=== PATIENT | male | born 1945 | race Caucasian/White ===

== ENCOUNTER → 2017-12-13 | Outpatient (REF) | payer MEDICARE, OTHER ==
[~2017-12-13] MED LIST: ATOR10TA24 PO; DOC100 PO; DOCU-416 PO; ESC10 PO; FLU60SYR30 IM ONLY; FOLI-68 PO; GABA-492 PO; HYDR-3083 PO; HYDR12.561 PO; HYDR50CA47 PO; HYDR50CA48 PO; HYZAAR PO; IBU800 PO; LEV500 PO; LORA-630 PO; LOSA-31 PO; LOSA-44 PO; MULT-859 PO; OMEP-218 PO; OXYC-865 PO; PARO-244 PO; PHENA200 PO; PNEI IJ; SILD20TA PO; TRAZ-156 PO; VILA40TA PO; [UNRECOGNIZED DRUG - CODE] PO
== END ==
LOC: ZZSENDIN 14:04
PROVIDERS: ATTEND Family Medicine
DX: Z01.812 Encounter for preprocedural laboratory examination (principal)
CPT/HCPCS: 81001

== ENCOUNTER 2018-01-07 00:36 | Observation (INO) | payer MEDICARE, OTHER ==
[2018-01-06 14:31] LABS: INR 0.99
[2018-01-07] VITALS (9 sets, daily range): BP systolic 113–164; BP diastolic 73–102
[~2018-01-07] VITALS: Ht 177.8 cm; Wt 90.7 kg
--- NOTE | 2018-01-07 03:58 | LEVENE H&P ---
DATE OF ADMISSION: January 07, 2017 IDENTIFICATION/CHIEF COMPLAINT The patient is a 71-year-old gentleman with a chief complaint of right knee pain. HISTORY OF PRESENT ILLNESS The patient has a longstanding history of knee arthrosis that has become progressively painful and debilitating and refractory to conservative care. Surgery is indicated to relieve symptoms after failure of nonoperative measures. PAST MEDICAL HISTORY Hypertension, otherwise excellent health, mild gastroesophageal reflux disease. PAST SURGICAL HISTORY Notable for two knee scopes as well as surgery to his left knee when he fell through a ceiling in 1979 and a cholecystectomy. ALLERGIES He has no true drug allergies but gets nauseated with codeine. CURRENT MEDICATIONS * Losartan * Hydrochlorothiazide 25 mg daily * Paroxetine 30 mg daily * Prilosec 40 mg p.o. daily * Ibuprofen as needed FAMILY HISTORY Noncontributory. SOCIAL HISTORY Negative for tobacco use. He drinks beer or wine on occasion. No history of abuse. REVIEW OF SYSTEMS Notable for some hearing loss. PHYSICAL EXAMINATION GENERAL: This is a well-developed, well-nourished male who appears stated age. HEENT: Normocephalic, atraumatic. NECK: Supple. LUNGS: Clear. HEART: Regular. ABDOMEN: Soft. ORTHOPEDIC EXAMINATION The right knee has crepitus, effusion is present, gross stability is good, extensor function is intact. DIAGNOSTIC DATA Radiographs demonstrate end-stage knee arthritis. ASSESSMENT Right knee end-stage degenerative joint disease, progressively painful and debilitating, refractory to conservative care. PLAN Per patient request, we are going to proceed with total knee arthroplasty. The nature of the procedure, the risks, benefits, the anticipated rehabilitative course were reviewed. Risks include, but are not limited to, , major medical or anesthetic complication, infection, neurovascular injury, blood transfusion, stiffness, scarring, fracture, tendon rupture, instability, implant loosening, migration or failure, persistent or recurrent pain or symptoms, need for additional surgery and other unforeseen. He understands and wishes to proceed. A signed permit is placed in the chart. No guarantees are given or implied. [facility]ITAL[facility]
[2018-01-07] MEDS ORDERED: ceFAZolin(*) 2GM/D5W 50ML 50 ML IVPB ONE (12:15)
[2018-01-07] MEDS ORDERED: LIDOCAINE/SOD BICARB 8.4% SYR ID ONE (12:15)
[2018-01-07] MEDS ORDERED: cloNIDine EPIDUR INJ 100MCG/ML 40 MCG, ROPIVACAINE 0.5% 20 ML VIAL 25 ML, EPINEPHrine H... INJ ONE (12:15)
[2018-01-07] MEDS ORDERED: NORMOSOL R SOLN(*) 1000 ML BAG 1,000 ML IV PRN ×2 (12:15→15:05)
[2018-01-07] MEDS ORDERED: TRANEXAMIC AC 1000 MG/10ML SDV 1,000 MG in DEXTROSE 5% 50 ML BAG 50 ML IV ONE (12:15)
[2018-01-07] MEDS ORDERED: MIDAZOLAM 2 MG/2 ML VIAL IVP ONE (12:15)
[2018-01-07] MEDS ORDERED: MIDAZOLAM 2 MG/2 ML VIAL ONE (12:27)
[2018-01-07] MEDS ORDERED: fentaNYL CITR 100 MCG/2 ML AMP ONE (12:27)
[2018-01-07] MEDS ORDERED: MORPHINE PF 5 MG/10 ML AMP ONE (12:28)
[2018-01-07] MEDS ORDERED: DEXAMETHASONE SOD PHOS 10MG/ML ONE (12:50)
[2018-01-07] MEDS ORDERED: PROPOFOL EMUL(*) 10MG/ML 20 ML 20 ML ONE (12:50)
[2018-01-07] MEDS ORDERED: LIDOCAINE MPF 1% 5 ML VIAL ONE (12:50)
[2018-01-07] MEDS ORDERED: ONDANSETRON 4 MG/2 ML VIAL ONE (12:50)
[2018-01-07] MEDS ORDERED: PHENYLEPHRINE/NS/PF 0.4MG/10ML ONE (12:54)
[2018-01-07] MEDS ORDERED: NS(*) 0.9% 100 ML BAG 100 ML ONE (13:00)
[2018-01-07] MEDS ORDERED: PHENYLEPHRINE 10 MG/1 ML VIAL ONE (13:01)
[2018-01-07] MEDS ORDERED: FLUSH 10 ML SYR IVP PRN (15:05)
[2018-01-07] MEDS ORDERED: PROMETHAZINE 25 MG/ML 1 ML AMP IVP PRN (15:05)
[2018-01-07] MEDS ORDERED: BISACODYL 10 MG SUPP PR PRN (15:05)
[2018-01-07] MEDS ORDERED: DIAZEPAM 5 MG TAB PO PRN (15:05)
[2018-01-07] MEDS ORDERED: ACETAMINOPHEN 325 MG TAB PO PRN (15:05)
[2018-01-07] MEDS ORDERED: MAGNESIUM HYDROXIDE* 30ML UDCP PO PRN (15:05)
[2018-01-07] MEDS ORDERED: BENZOCAINE/MENTHOL 1 EACH LOZG PO PRN (15:05)
[2018-01-07] MEDS ORDERED: diphenhydrAMINE 50 MG/ML VIAL IVP PRN (15:05)
[2018-01-07] MEDS ORDERED: ZOLPIDEM TARTRATE 5 MG TAB PO PRN (15:05)
[2018-01-07] MEDS ORDERED: METOCLOPRAMIDE 10 MG/2 ML SDV IVP PRN (15:10)
[2018-01-07] MEDS ORDERED: NALBUPHINE HCL 10 MG/ML AMP IVP PRN (15:10)
[2018-01-07] MEDS ORDERED: NALOXONE HCL 0.4 MG/ML VIAL IVP PRN (15:10)
[2018-01-07] MEDS ORDERED: ONDANSETRON 4 MG/2 ML VIAL IVP PRN (15:10)
[2018-01-07] MEDS ORDERED: diphenhydrAMINE 25 MG CAP PO PRN (15:10)
--- NOTE | 2018-01-07 16:59 | Hospitalist Progress Note ---
Subjective Progress Notes Subjective No cp/sob. EBL 100cc. 2300cc of crystalloid, TXA, phenylephrine, and dexamethasone. Physical Exam Vital Signs Date Time Temp Pulse Resp B/P (MAP) Pulse Ox O2 Delivery O2 Flow Rate FiO2 01/07/18 15:45 91 14 92 01/07/18 11:02 98.5 164/102 (122) Room Air Intake and Output 01/08/18 07:00 Intake Total 1690 ml Output Total 400 ml Balance 1290 ml Intake Oral 240 ml IV Total 1450 ml Output Urine Total 300 ml Estimated Blood Loss 100 ml General Appearance: Alert, Awake, No Acute Distress Cardiovascular: Regular Rate and Rhythm Respiratory: Clear to Auscultation Extremities: No Edema Assessment and Plan Problems: (1) Status post knee replacement Status: Acute Assessment & Plan: No CV/pulmonary issues. The patient has no history of DVT/ PE. The patient will be on ASA 325mg a day for 30 days after surgery for blood clot prevention. (2) HTN (hypertension) Status: Chronic Assessment & Plan: Continue Losartan and HCTZ with parameters. BMP daily. Creatinine pre-op was 1.1. (3) Depression Status: Chronic Assessment & Plan: Continue chronic paroxetine. (4) GERD (gastroesophageal reflux disease) Status: Chronic Assessment & Plan: He take omeprazole chronically, but will be on Protonix in the hospital. Problem Qualifiers (1) Status post knee replacement: Laterality: right Qualified Codes: Z96.651 - Presence of right artificial knee joint CARLOTA MARTIN MD Jan 07, 2018 16:59
[2018-01-07] MEDS ORDERED: ceFAZolin(*) 1 GM VIAL 1 GM in NS(*) 0.9% 100 ML ADDVANT BAG 100 ML IVPB SCH (17:00)
--- NOTE | 2018-01-07 17:16 | RADIOLOGY IMAGING REPORT ---
FACILITY: [facility] PATIENT NAME: Edwin Ren : 1945 MR: [id number] V: [id number] EXAM DATE: ORDERING PHYSICIAN: MADINA PRADO TECHNOLOGIST: Location: [facility] - [place] Patient: Edwin Ren : 1945 Visit/Account:[id number] Date of Sevice: 01/07/2018 KNEE LIMITED RIGHT HISTORY: Status post right knee total arthroplasty. ADDITIONAL HISTORY: None. COMPARISON: None. FINDINGS: 2 views were obtained of the right knee. Patient is undergone placement of a right knee prosthesis wi th anatomic alignment of the components. There are no radiographic findings to suggest an acute compl ication. Visualized osseous structures are unremarkable. Small amount of air and fluid is present in the knee joint as would be expected. Skin cyndie are present. IMPRESSION: Patient status post placement of a right knee prosthesis with anatomic alignment of the components. T here is no radiographic evidence of an acute complication. Report Dictated By: Arti Hooker MD at 01/07/2018 5:10 PM Report E-Signed By: Arti Hooker MD at 01/07/2018 5:12 PM WSN:[id number]
[2018-01-07] MEDS: CELECOXIB 200 MG CAP PO SCH (18:09)
[2018-01-07] MEDS: ceFAZolin 1 GM VIAL IVP SCH (20:29)
--- NOTE | 2018-01-07 21:38 | OPERATIVE REPORT 1 ---
EVENT DATE: January 07, 2018 SURGEON: Robin Armando MD ANESTHESIOLOGIST: Sagar Wilson MD ANESTHESIA: Subarachnoid block anesthesia. PREOPERATIVE DIAGNOSIS Trouble placing urethral Reeves. POSTOPERATIVE DIAGNOSIS Trouble placing urethral Reeves. PROCEDURE PERFORMED Placement of urethra Reeves. DESCRIPTION OF PROCEDURE Under subarachnoid block anesthesia, the patient was prepped and draped in the supine position. Lubricant K-Y Jelly was placed per urethra. The 14 coude-tip catheter passed satisfactorily up the urethra into the bladder. Solution 12 mL was placed in the balloon. There was good efflux of clear urine after placement of the Reeves and putting it to gravity drainage on no tension. The patient tolerated the procedure satisfactorily and was turned over to Dr. Appiah and his crew for their planned orthopedic procedure. ML
[2018-01-07] MEDS: diphenhydrAMINE 25 MG CAP PO PRN (23:00)
[2018-01-08] VITALS (8 sets, daily range): BP systolic 119–141; BP diastolic 76–98; Ht 177.8 cm; Wt 90.7 kg
[2018-01-08] MEDS: ceFAZolin 1 GM VIAL IVP SCH ×2 (04:01→12:12)
--- NOTE | 2018-01-08 04:03 | LEVENE TKA ---
EVENT DATE: January 07, 2018 SURGEON: Adria Appiah MD ANESTHESIOLOGIST: Sagar Wilson MD ANESTHESIA: General plus spinal. DISASTER DIRECTOR: Raymond Kahn PA-C PREOPERATIVE DIAGNOSIS Right knee degenerative joint disease. POSTOPERATIVE DIAGNOSIS Right knee degenerative joint disease. PROCEDURE PERFORMED Right total knee arthroplasty. ESTIMATED BLOOD LOSS Minimal. DRAINS None. SPECIMENS None. COMPLICATIONS No apparent. TOURNIQUET TIME 54 minutes. IMPLANTS USED Gaye Triathlon knee system, a 5 right PS femur, 5 standard tibial baseplate, a 36 mm universal symmetric all polyethylene patella button and an 11 mm PS tibial tray liner. INDICATIONS The patient is 72-year-old gentleman with end-stage arthritis with progressive pain and disability refractory to conservative care. Surgery is indicated to relieve symptoms after failure of nonoperative measures. DESCRIPTION OF PROCEDURE The patient was taken to the operating room and placed supine on the operating table. General anesthesia was induced after spinal block is placed by the anesthesiologist. Antibiotics and TXA are administered IV. The right lower extremity is prepped and draped in the usual sterile fashion for knee arthroplasty. The limb is exsanguinated with an Esmarch bandage. The tourniquet is inflated to 250 mmHg. A midline longitudinal incision is made, carried down through the skin and subcu to the extensor mechanism. A full- thickness flap is developed medially far enough to allow medial parapatellar arthrotomy to be performed. The patella is everted. Knee is brought into a flexed position. The fat pad, anterior horns of the menisci and the cruciate ligaments are debrided. Subperiosteal medial release is initiated in titrated fashion to start to balance the knee. Step drill is used to enter the distal femur. A 10-inch long alignment guide is used to engage the isthmus. Cut is set for 5 degrees of valgus relative to the anatomic axis. A 10 mm resection block is applied, pinned, and distal femoral cut is made with an oscillating saw. AP sizing guide is applied to this, positioned for 3 degrees of external rotation relative to the posterior condyle. A size 5 is selected for optimal sizing without risk of notching. The four-in-one cutting block is applied. Anterior, posterior, posterior chamfer and anterior chamfer cuts are made respectively. A PS block is applied, centered mediolateral. Bone is removed for the box. Trial femur had nice [id number]-zdas fit. Attention is turned to tibial preparation. The extramedullary alignment guide is applied, positioned for varus, valgus, posterior slope and rotation. This is set to resect 9 mm from the relatively intact lateral tibial plateau. It is dropped down another millimeter or two to ensure an adequate cut. Block is pinned, extramedullary alignment check is made. Cut is made with an oscillating saw. Gaps are balanced and symmetric after osteophyte removal with no additional releases required. Size [address] provides optimum bony coverage without soft tissue overhang. This is inserted along with a trial liner and the trial femur. Knee is brought to extension. Patella is taken from a starting thickness of 22 mm to a residual of 14 with a patellar clamp and an oscillating saw. The 36 provides optimal bony coverage without soft tissue overhang. Lug holes are drilled. Patella tracks nicely with the no-touch technique. Final tibial preparation consists of ensuring appropriate rotational and translational position of the component. The box is reamed. The fine is punched. Surfaces are copiously lavaged. A mix of polymethylmethacrylate is made, and the components are cemented in a single stage. When cement is fully polymerized, tourniquet is deflated. Hemostasis is ensured. The 11 PS tibial tray liner is ideal to fill up the gap, allowing the knee to drop to full extension without hyperextension, providing ideal soft tissue balance. The base plate is dried and lavaged, and the liner is locked into the base plate. The joint is reduced. The large ossicle on the undersurface of his patellar tendon consistent with old Neris-Schlatter is removed to minimize prominence during kneeling, and then the arthroplasty is closed in flexion with #2-Ethibond , subcu with 3-0 Vicryl, skin with surgical cyndie. Xeroform was applied followed by a dry, sterile dressing and a compression wrap. The patient was awakened from the anesthesia and taken to the recovery room in stable condition , having tolerated the procedure well. Plan is for standard TK rehab protocol. [facility]
[2018-01-08] MEDS: diphenhydrAMINE 25 MG CAP PO PRN ×3 (04:45→21:45)
[2018-01-08] MEDS: APAP/HYDROCODONE 325/7.5 TAB PO PRN ×4 (05:25→21:45)
[2018-01-08] MEDS: CELECOXIB 200 MG CAP PO SCH ×2 (08:10→16:35)
--- NOTE | 2018-01-08 08:21 | Hospitalist Progress Note ---
Subjective Progress Notes Subjective No cp/sob. No concerns from patient or staff. Physical Exam Vital Signs Date Time Temp Pulse Resp B/P (MAP) Pulse Ox O2 Delivery O2 Flow Rate FiO2 01/08/18 07:27 92 Nasal Cannula 2.0 01/08/18 06:51 98.1 79 17 126/81 (96) General Appearance: Alert, Awake, No Acute Distress Result Diagram: 01/08/18 0545 Assessment and Plan Problems: (1) Status post knee replacement Status: Acute Assessment & Plan: No CV/pulmonary issues. The patient has no history of DVT/ PE. The patient will be on ASA 325mg a day for 30 days after surgery for blood clot prevention. (2) HTN (hypertension) Status: Chronic Assessment & Plan: Continue Losartan and HCTZ with parameters. BMP daily. Creatinine pre-op was 1.1. (3) Depression Status: Chronic Assessment & Plan: Continue chronic paroxetine. (4) GERD (gastroesophageal reflux disease) Status: Chronic Assessment & Plan: He take omeprazole chronically, but will be on Protonix in the hospital. Exam Sepsis Risk: No Definite Risk Problem Qualifiers (1) Status post knee replacement: Laterality: right Qualified Codes: Z96.651 - Presence of right artificial knee joint CARLOTA MARTIN MD Jan 08, 2018 08:21
[2018-01-08] MEDS: PANTOPRAZOLE SOD 40 MG TABEC PO SCH (09:16)
[2018-01-08] MEDS: HYDROCHLOROTHIAZIDE 25 MG TAB PO SCH (09:16)
[2018-01-08] MEDS: ASPIRIN 325 MG TAB PO SCH (09:16)
[2018-01-08] MEDS: LOSARTAN POTASSIUM 50 MG TAB PO SCH (09:17)
[2018-01-09 02:13] VITALS: BP 118/70
[2018-01-09 02:49] VITALS: BP 111/75
[2018-01-09] MEDS: APAP/HYDROCODONE 325/7.5 TAB PO PRN ×2 (02:56→07:50)
[2018-01-09 06:50] VITALS: BP 122/70
[2018-01-09] MEDS ORDERED: HYDR-4308 PO (07:09)
[2018-01-09] MEDS: CELECOXIB 200 MG CAP PO SCH (07:49)
[2018-01-09] MEDS: HYDROCHLOROTHIAZIDE 25 MG TAB PO SCH (09:00)
[2018-01-09 09:05] VITALS: BP 138/72
--- NOTE | 2018-01-09 09:06 | Hospitalist Progress Note ---
Subjective Progress Notes Subjective He reports doing well. He is planning on DC today. Physical Exam Vital Signs Date Time Temp Pulse Resp B/P (MAP) Pulse Ox O2 Delivery O2 Flow Rate FiO2 01/09/18 08:01 92 Room Air 01/09/18 06:50 98.2 72 12 122/70 (87) 1.0 Intake and Output 01/10/18 07:00 Intake Total 600 ml Output Total 550 ml Balance 50 ml Intake Oral 600 ml Output Urine Total 550 ml # Voids 1 # Bowel Movements 2 General Appearance: Alert, Awake Cardiovascular: Regular Rate and Rhythm Respiratory: Clear to Auscultation Result Diagram: 01/09/18 0536 Assessment and Plan Problems: (1) Status post knee replacement Status: Acute Assessment & Plan: Stable post-op. The patient has no history of DVT/PE. The patient will be on ASA 325mg a day for 30 days after surgery for blood clot prevention. (2) HTN (hypertension) Status: Chronic Assessment & Plan: Continue Losartan and HCTZ. (3) Depression Status: Chronic Assessment & Plan: Continue chronic paroxetine. (4) GERD (gastroesophageal reflux disease) Status: Chronic Assessment & Plan: He take omeprazole chronically, but was on Protonix in the hospital. Exam Sepsis Risk: No Definite Risk Problem Qualifiers (1) Status post knee replacement: Laterality: right Qualified Codes: Z96.651 - Presence of right artificial knee joint GWEN PIRES MD Jan 09, 2018 09:06
[2018-01-09] MEDS: PANTOPRAZOLE SOD 40 MG TABEC PO SCH (09:11)
[2018-01-09] MEDS: ASPIRIN 325 MG TAB PO SCH (09:11)
[2018-01-09] MEDS: LOSARTAN POTASSIUM 50 MG TAB PO SCH (09:12)
[2018-01-09] MEDS ORDERED: TAMSULOSIN HCL 0.4 MG CAP PO ONE (09:15)
[2018-01-09 11:38] VITALS: BP 113/71
[2018-01-09] MEDS ORDERED: ONDANSETRON 4 MG ODT TABDP SL PRN (12:15)
[2018-01-09] MEDS ORDERED: ONDA4TAB PO (12:15)
== END 2018-01-09 07:03 | disposition home or self-care (01) ==
LOC: OR 00:36 → UNDOADMOB 15:50 → MED 15:50
PROVIDERS: ADMIT Orthopaedic Surgery; ATTEND Orthopaedic Surgery
DX: M17.11 Unilateral primary osteoarthritis, right knee (principal); I10 Essential (primary) hypertension; K21.9 Gastro-esophageal reflux disease without esophagitis; F32.9 Major depressive disorder, single episode, unspecified
CPT/HCPCS: 27447; 36415; 73560; 85610; 86850; 86900; 86901; 96372; 97116; 97161; 97530; A9270; C1713; C1776; G0378; J0171; J0690; J0735; J1100; J1885; J2001; J2250; J2270; J2300; J2370; J2405; J2704; J2795; J3010; J7050; J7060; Q0162; Q0163; 82310; 82374; 82435; 82565; 82947; 84132; 84295; 84520; S0119

== ENCOUNTER 2018-01-10 04:23 | Emergency (ER) | payer MEDICARE, OTHER ==
[2018-01-08 10:13] VITALS: Ht 182.9 cm; Wt 89.8 kg
[~2018-01-10] VITALS: Ht 182.9 cm; Wt 89.8 kg
--- NOTE | 2018-01-10 04:33 | ER Report ---
History and Physical Time Seen By MD: 04:33 HPI/ROS CHIEF COMPLAINT: rapid heart rate, sweats/chills HISTORY OF PRESENT ILLNESS: This is a 72 year old male. He was discharged yesterday from the hospital after total knee replacement of the right knee. He had the surgery on 01/07 (Saturday) and was discharged yesterday 01/09 (). Throughout the day after discharge, he started to have rapid heart rate and chills which worsened tonight. EMS was called and he was found to be a little hypoxic with room air saturations of 88%. He has moderate post-operative pain. Tightness in the right calf, and some swelling in the right leg compared to the left. He has had some sinus pressure and drainage. He denies feeling short of breath with this. He does have some chest tightness. Denies dysuria, but records do show he had difficulty with the catheter and Dr. Armando placed a coude tip catheter in the OR prior to his surgery. He has not been coughing. He has no abdominal pain, nausea or vomiting with this. EMS also notes frequent PVCs on their monitoring. REVIEW OF SYSTEMS: Constitutional: As above. Eyes: No vision changes. ENT: As above. Cardiovascular: As above. Respiratory: As above. Gastrointestinal: Normal bowel movements. Genitourinary: No dysuria. No frequency Musculoskeletal: No other musculoskeletal pain. Skin: No rashes. Neurological: No dizziness or headache. Allergies: Coded Allergies: codeine (Verified Adverse Reaction, Severe, NAUSEA/VOMITING, 01/03/15) Home Meds Active Scripts Ondansetron (ZOFRAN ODT) 4 Mg Tab.rapdis, 4 MG PO Q8H Y for nausea, #5 TAB.ALIN Prov:CARLOTA MARTIN MD 01/09/18 Sildenafil Citrate (SILDENAFIL) 20 Mg Tablet, 20 MG PO TID for 10 Days, #30 3 Refills Prov:GABBY NÚÑEZ MD 11/11/17 Losartan/Hydrochlorothiazide (HYZAAR 100-25 TABLET) 1 Each Tablet, 1 EACH PO QDAY, #60 TAB Prov:GABBY NÚÑEZ MD 10/23/17 Reported Medications Hydrocodone Bit/Acetaminophen (NORCO 7.5-325 TABLET) 1 Each Tablet, 1-2 EACH PO Q4-6H, #80 01/09/18 Paroxetine Hcl (PAXIL) 30 Mg Tablet, 30 MG PO QDAY 12/26/13 Omeprazole Magnesium (Prilosec Otc) 20 Mg Tablet.dr, 20 MG PO QDAY 02/15/10 Past Medical/Surgical History Hypertension, history of TIA, gastroesophageal reflux disease, osteoarthritis, depression. Surgical history includes hiatal hernia repair, inguinal hernia repair, cholecystectomy, right knee total knee replacement as noted, orthoscopic surgery on knees, right shoulder, clavicle, tonsillectomy as a child. Reviewed Nurses Notes: Yes Hx Smoking: No Smoking Status: Never Smoker Exposure to Second Hand Smoke?: No Hx Substance Use Disorder: No Hx Alcohol Use: Yes Constitutional Vital Sign - Last 24 Hours 01/10/18 01/10/18 01/10/18 01/10/18 04:30 04:31 04:40 05:00 Temp 98.7 Pulse 109 102 102 95 Resp 14 17 17 16 B/P (MAP) 125/72 (89) 118/77 118/77 (91) 128/78 (95) Pulse Ox 91 94 98 97 O2 Delivery Nasal Cannula Nasal Cannula Nasal Cannula Nasal Cannula O2 Flow Rate 2 2 2 01/10/18 01/10/18 01/10/18 01/10/18 05:20 05:50 06:00 06:30 Pulse 95 101 101 99 Resp 17 15 19 17 B/P (MAP) 134/76 (95) 133/79 (97) Pulse Ox 97 97 97 93 O2 Delivery Nasal Cannula Nasal Cannula Nasal Cannula Nasal Cannula O2 Flow Rate 2 2 2 2 01/10/18 06:38 Pulse 95 Resp 18 Pulse Ox 96 O2 Delivery Nasal Cannula O2 Flow Rate 2 Intake and Output 01/10/18 01/10/18 01/11/18 15:00 23:00 07:00 Intake Total 1000 ml Balance 1000 ml Physical Exam General Appearance: The patient is alert. No acute distress. Eyes: Pupils are equal, round. No pallor, injection or icterus. ENT: Mucous membranes are moist. Normal oral mucosa. Posterior oropharynx is normal. Neck: Supple and non tender. Respiratory: Lungs are clear to auscultation. Cardiovascular: Tachycardia, but with a regular rhythm. No murmurs, gallops or rubs. Normal capillary refill. Normal pulses in both feet. Has some edema in right leg compared to the left. Gastrointestinal: Abdomen is soft and non tender. Nondistended. Normal active bowel sounds. Neurological: Alert and oriented x3. Normal sensation in the legs. No weakness. Skin: Warm and diaphoretic. Dressing on the leg is clean, dry and intact. Ultrasound was ordered, evaluation of the surgical wound was performed after the ultrasound. Musculoskeletal: The right lower extremity has some tight feeling in medial thigh and the calf. Some tenderness over the knee, but not excessive and expected post-operatively. DIFFERENTIAL DIAGNOSIS: After history and physical exam, differential diagnosis was considered for a patient who is 3 days post-operative from right total knee replacement with tachycardia, some mild swelling in right leg, mild hypoxia, sweats and chills. Consider post-operative infection such as urinary tract infection, pneumonia, surgical infection, DVT or PE, or viral syndrome. Medical Decision Making Data Points Result Diagram: 01/10/18 0427 01/10/18 0427 Laboratory Hematology Test 01/10/18 04:27 01/10/18 05:08 01/10/18 05:41 Red Blood Count 4.45 M/uL (4.00-5.60) Mean Corpuscular Volume 90.7 fL (80.0-96.0) Mean Corpuscular Hemoglobin 31.5 pg (26.0-33.0) Mean Corpuscular Hemoglobin Concent 34.7 g/dL (32.0-36.0) Red Cell Distribution Width 14.3 % (11.5-14.5) Mean Platelet Volume 7.9 fL (7.2-11.1) Neutrophils (%) (Auto) 75.4 % (39.4-72.5) Lymphocytes (%) (Auto) 13.0 % (17.6-49.6) Monocytes (%) (Auto) 10.7 % (4.1-12.4) Eosinophils (%) (Auto) 0.5 % (0.4-6.7) Basophils (%) (Auto) 0.4 % (0.3-1.4) Nucleated RBC Relative Count (auto) 0.1 /100WBC Neutrophils # (Auto) 7.6 K/uL (2.0-7.4) Lymphocytes # (Auto) 1.3 K/uL (1.3-3.6) Monocytes # (Auto) 1.1 K/uL (0.3-1.0) Eosinophils # (Auto) 0.1 K/uL (0.0-0.5) Basophils # (Auto) 0.0 K/uL (0.0-0.1) Nucleated RBC Absolute Count (auto) 0.01 K/uL Erythrocyte Sedimentation Rate 34 mm/HOUR (0-20) Sodium Level 135 mmol/L (137-145) Potassium Level 3.5 mmol/L (3.5-5.0) Chloride Level 97 mmol/L (98-107) Carbon Dioxide Level 27 mmol/L (22-30) Blood Urea Nitrogen 18 mg/dl (9-21) Creatinine 1.10 mg/dl (0.66-1.25) Glomerular Filtration Rate Calc > 60.0 Random Glucose 109 mg/dl (75-110) Lactate 1.2 mmol/L (0.7-2.1) Calcium Level 8.6 mg/dl (8.4-10.2) Total Bilirubin 1.2 mg/dl (0.2-1.3) Aspartate Amino Transf (AST/SGOT) 23 U/L (0-35) Alanine Aminotransferase (ALT/SGPT) 37 U/L (0-56) Alkaline Phosphatase 54 U/L (0-126) Troponin I 0.174 ng/ml C-Reactive Protein 15.9 mg/dl (<1.0) Total Protein 6.3 gm/dl (6.3-8.2) Albumin 3.3 g/dl (3.5-5.0) Influenza Virus Type A (PCR) Negative (NEGATIVE) Influenza Virus Type B (PCR) Negative (NEGATIVE) Urine Color Yellow Urine Clarity Clear Urine pH 6.0 pH (4.8-9.5) Urine Specific [place] 1.010 Urine Protein Negative mg/dL (NEGATIVE) Urine Glucose (UA) Negative mg/dL (NEGATIVE) Urine Ketones 20 mg/dL (NEGATIVE) Urine Blood Small (NEGATIVE) Urine Nitrite Negative (NEGATIVE) Urine Bilirubin Negative (NEGATIVE) Urine Urobilinogen Negative mg/dL (0.2-1.9) Urine Leukocyte Esterase Negative (NEGATIVE) Urine RBC 1 /HPF (0-2/HPF) Urine WBC 4 /HPF (0-5/HPF) Urine Squamous Epithelial Cells None /LPF (</=FEW) Urine Bacteria Negative /HPF (NONE-FEW) Urine Mucus None /HPF (NONE-FEW) Chemistry Test 01/10/18 04:27 01/10/18 05:08 01/10/18 05:41 White Blood Count 10.1 k/uL (4.5-11.0) Red Blood Count 4.45 M/uL (4.00-5.60) Hemoglobin 14.0 g/dL (14.0-18.0) Hematocrit 40.4 % (42.0-52.0) Mean Corpuscular Volume 90.7 fL (80.0-96.0) Mean Corpuscular Hemoglobin 31.5 pg (26.0-33.0) Mean Corpuscular Hemoglobin Concent 34.7 g/dL (32.0-36.0) Red Cell Distribution Width 14.3 % (11.5-14.5) Platelet Count 188 K/uL (150-450) Mean Platelet Volume 7.9 fL (7.2-11.1) Neutrophils (%) (Auto) 75.4 % (39.4-72.5) Lymphocytes (%) (Auto) 13.0 % (17.6-49.6) Monocytes (%) (Auto) 10.7 % (4.1-12.4) Eosinophils (%) (Auto) 0.5 % (0.4-6.7) Basophils (%) (Auto) 0.4 % (0.3-1.4) Nucleated RBC Relative Count (auto) 0.1 /100WBC Neutrophils # (Auto) 7.6 K/uL (2.0-7.4) Lymphocytes # (Auto) 1.3 K/uL (1.3-3.6) Monocytes # (Auto) 1.1 K/uL (0.3-1.0) Eosinophils # (Auto) 0.1 K/uL (0.0-0.5) Basophils # (Auto) 0.0 K/uL (0.0-0.1) Nucleated RBC Absolute Count (auto) 0.01 K/uL Erythrocyte Sedimentation Rate 34 mm/HOUR (0-20) Glomerular Filtration Rate Calc > 60.0 Lactate 1.2 mmol/L (0.7-2.1) Calcium Level 8.6 mg/dl (8.4-10.2) Total Bilirubin 1.2 mg/dl (0.2-1.3) Aspartate Amino Transf (AST/SGOT) 23 U/L (0-35) Alanine Aminotransferase (ALT/SGPT) 37 U/L (0-56) Alkaline Phosphatase 54 U/L (0-126) Troponin I 0.174 ng/ml C-Reactive Protein 15.9 mg/dl (<1.0) Total Protein 6.3 gm/dl (6.3-8.2) Albumin 3.3 g/dl (3.5-5.0) Influenza Virus Type A (PCR) Negative (NEGATIVE) Influenza Virus Type B (PCR) Negative (NEGATIVE) Urine Color Yellow Urine Clarity Clear Urine pH 6.0 pH (4.8-9.5) Urine Specific [place] 1.010 Urine Protein Negative mg/dL (NEGATIVE) Urine Glucose (UA) Negative mg/dL (NEGATIVE) Urine Ketones 20 mg/dL (NEGATIVE) Urine Blood Small (NEGATIVE) Urine Nitrite Negative (NEGATIVE) Urine Bilirubin Negative (NEGATIVE) Urine Urobilinogen Negative mg/dL (0.2-1.9) Urine Leukocyte Esterase Negative (NEGATIVE) Urine RBC 1 /HPF (0-2/HPF) Urine WBC 4 /HPF (0-5/HPF) Urine Squamous Epithelial Cells None /LPF (</=FEW) Urine Bacteria Negative /HPF (NONE-FEW) Urine Mucus None /HPF (NONE-FEW) Urinalysis Test 01/10/18 05:41 Urine Color Yellow Urine Clarity Clear Urine pH 6.0 pH (4.8-9.5) Urine Specific [place] 1.010 Urine Protein Negative mg/dL (NEGATIVE) Urine Glucose (UA) Negative mg/dL (NEGATIVE) Urine Ketones 20 mg/dL (NEGATIVE) Urine Blood Small (NEGATIVE) Urine Nitrite Negative (NEGATIVE) Urine Bilirubin Negative (NEGATIVE) Urine Urobilinogen Negative mg/dL (0.2-1.9) Urine Leukocyte Esterase Negative (NEGATIVE) Urine RBC 1 /HPF (0-2/HPF) Urine WBC 4 /HPF (0-5/HPF) Urine Squamous Epithelial Cells None /LPF (</=FEW) Urine Bacteria Negative /HPF (NONE-FEW) Urine Mucus None /HPF (NONE-FEW) Microbiology Microbiology Date/Time Source Procedure Growth Status 01/10/18 05:00 Blood Blood Culture - Preliminary NO GROWTH SO FAR, SET LATE. REINCUBATED Resulted 01/10/18 04:58 Blood Blood Culture - Preliminary NO GROWTH SO FAR, SET LATE. REINCUBATED Resulted EKG/Imaging EKG Interpretation 12 lead EKG: Rhythm: normal sinus rhythm, rate 99 Slater: Normal axis. QRS: Poor R-wave progression in the septal and anterior leads, ST segments: no ST segment depression or elevation, nonspecific flattening of the T waves laterally Imaging CT angiogram of the chest: Indication: Tachycardia and hypoxia. Recent knee surgery. Technique: Helical CT was performed through the chest following IV contrast enhancement with 75 cc of Isovue 370. Multiplanar reconstructions and MIP images are reviewed. One of the following dose optimization techniques was utilized in the performance of this exam: Automated exposure control; adjustment of the mA and/ or kV according to the patient's size; or use of an iterative reconstruction technique. Specific details can be referenced in the facility's radiology CT exam operational policy. Comparison: None. Pulmonary arteries: There is uniform contrast enhancement. There are no signs of pulmonary emboli. Aorta and great vessels: There is uniform contrast enhancement. There are no signs of aneurysm or dissection. Heart and pericardial soft tissues: Atherosclerotic calcification is observed in the coronary arteries. The heart size is normal. No pericardial fluid is identified. Mediastinal soft tissues: A small hiatal hernia is present. A few unenlarged lymph nodes are present in the superior mediastinum. There is no evidence of mass or fluid. Lung casey: There is linear atelectasis at the right base. No parenchymal consolidation, volume loss, or mass is identified. Pleural spaces: Unremarkable. Skeletal structures: There is mild/moderate degenerative disc disease and spur formation in the lower thoracic spine. Upper abdomen: Unremarkable. IMPRESSION: No evidence of pulmonary emboli. No focal parenchymal or pleural abnormality. Report Dictated By: Yobani Mas MD at 01/10/2018 6:01 AM ED Course/Re-evaluation Clinical Indication for ER IV: IV Access ED Course Initial evaluation based on presenting symptoms. Concern for post-op infectious process. White count was negative. Normal H/H and platelets. Metabolic panel was normal with a slight decrease Sodium and a slight increased BUN/Cr ratio. Blood sugar was normal. Based on risk for PE and DVT, Venous ultrasound of the lower legs and CT angiogram of the chest were done. CTA negative for pulmonary embolism or consolidation. Bladder scanner showed only 20-30 residual. Venous ultrasound negative for DVT. Troponin critical elevation of 0.174. Discussed this with the patient and his . If cardiology as needed, they preferred to go [place] to [place] or [place]. I called and discussed the case with Dr. Hassan, cardiology, who accepted the patient for transfer. He requested that we give the patient aspirin 324 mg, because of the recent surgery no other blood thinners ordered at this time until they do their evaluation. Patient requesting medicine for pain, and morphine 4mg IV was ordered. We did call and let Dr. Orantes, orthopedic surgery, know regarding the patient' s situation and he will let Dr. Michelle know. Decision to Disposition Date: Jan 10, 2018 Decision to Disposition Time: 06:34 Transfer Facility Patient was transferred to [facility] via ambulance. The transfer was non-emergent, and was required because the capabilities of the receiving hospital. Consent for transfer was obtained from the patient. See EMTALA for transfer orders. Depart Departure Latest Vital Signs Vital Signs Date Time Temp Pulse Resp B/P (MAP) Pulse Ox O2 Delivery O2 Flow Rate FiO2 01/10/18 06:38 95 18 96 Nasal Cannula 2 01/10/18 06:30 133/79 (97) 01/10/18 04:31 98.7 Impression: Primary Impression: NSTEMI (non-ST elevated myocardial infarction) Additional Impression: Hypoxia Condition: Condition Unchanged Disposition: [facility]FER TO [facility] Problem Qualifiers FLORIDA RUIZ MD Jan 10, 2018 04:33
[2018-01-10] MEDS ORDERED: EMS NS 0.9%(*) 1000 ML BAG 1,000 ML IV ONE (04:40)
[2018-01-10 05:00] LABS: PLATELET COUNT, AUTOMATED 188 K/uL (150-450)
[2018-01-10] MEDS ORDERED: IOPAMIDOL 76% 75 ML INFUS BTL 75 ML ONE (05:24)
[2018-01-10] MEDS ORDERED: NS 0.9% 150 ML BAG 150 ML ONE (05:24)
--- NOTE | 2018-01-10 06:04 | EKG ---
[place] [facility] [place] NAME: ADELINA GOMES : [id number] MR: [id number] V: [id number] EXAM DATE: ORDERING PHYSICIAN: FLORIDA RUIZ TECHNOLOGIST: Test Reason : Blood Pressure : / mmHG Vent. Rate : 099 BPM Atrial Rate : 099 BPM P-R Int : 164 ms QRS Dur : 100 ms QT Int : 362 ms P-R-T Axes : 059 064 109 degrees QTc Int : 464 ms Normal sinus rhythm No ST-T abnormalities When compared with ECG of 14-JAN-2014 14:43, Non-specific ST change diffusely Confirmed by CARLOTA MARTIN ([id number]) on 01/10/2018 6:16:39 AM Referred By: Confirmed By:CARLOTA MARTIN
--- NOTE | 2018-01-10 06:13 | RADIOLOGY IMAGING REPORT ---
[place] [facility] [place] NAME[place] Edwin Ren : 1945 MR: [id number] V: [id number] EXAM DATE: ORDERING PHYSICIAN: FLORIDA RUIZ TECHNOLOGIST: Location: [facility] Patient: Edwin Ren : 1945 Visit/Account:[id number] Date of Sevice: 01/10/2018 CT angiogram of the chest: Indication: Tachycardia and hypoxia. Recent knee surgery. Technique: Helical CT was performed through the chest following IV contrast enhancement with 75 cc of Isovue 370. Multiplanar reconstructions and MIP images are reviewed. One of the following dose optimization techniques was utilized in the performance of this exam: Autom ated exposure control; adjustment of the mA and/or kV according to the patient's size; or use of an i terative reconstruction technique. Specific details can be referenced in the facility's radiology C T exam operational policy. Comparison: None. Pulmonary arteries: There is uniform contrast enhancement. There are no signs of pulmonary emboli. Aorta and great vessels: There is uniform contrast enhancement. There are no signs of aneurysm or dis section. Heart and pericardial soft tissues: Atherosclerotic calcification is observed in the coronary arterie s. The heart size is normal. No pericardial fluid is identified. Mediastinal soft tissues: A small hiatal hernia is present. A few unenlarged lymph nodes are present in the superior mediastinum. There is no evidence of mass or fluid. Lung casey: There is linear atelectasis at the right base. No parenchymal consolidation, volume loss , or mass is identified. Pleural spaces: Unremarkable. Skeletal structures: There is mild/moderate degenerative disc disease and spur formation in the lower thoracic spine. Upper abdomen: Unremarkable. IMPRESSION: No evidence of pulmonary emboli. No focal parenchymal or pleural abnormality. Report Dictated By: Yobani Mas MD at 01/10/2018 6:01 AM Report E-Signed By: Yobani Mas MD at 01/10/2018 6:09 AM [id number]
[2018-01-10 06:30] VITALS: BP 133/79
[2018-01-10] MEDS ORDERED: ASPIRIN 81 MG CHEW PO ONE (07:20)
--- NOTE | 2018-01-10 07:23 | RADIOLOGY IMAGING REPORT ---
FACILITY: [facility] [place] PATIENT NAME: Edwin Ren : 1945 MR: [id number] V: [id number] EXAM DATE: ORDERING PHYSICIAN: FLOR[place] RUIZ TECHNOLOGIST: Location: [facility] Patient: Edwin Ren : 1945 Visit/Account:[id number] Date of Sevice: 01/10/2018 Duplex Doppler ultrasound of the bilateral lower extremities: Indication: Recent right knee surgery. Technique: Compression ultrasound with duplex Doppler imaging was performed. Comparison: None. Findings: There is normal compression of the bilateral common femoral, superficial femoral, popliteal , peroneal, posterior tibial, and proximal saphenous veins. There is no evidence of echogenic thrombu s. The Doppler patterns of resting flow and augmentation are within normal limits. There is no mass o r fluid collection. IMPRESSION: No evidence of deep vein thrombosis in either lower extremity. Report Dictated By: Yobani Mas MD at 01/10/2018 7:16 AM Report E-Signed By: Yobani Mas MD at 01/10/2018 7:19 AM WSN:[id number]
[2018-01-10] MEDS ORDERED: MORPHINE 4 MG/ML SDV IVP ONE (07:25)
== END 2018-01-10 09:15 | disposition short-term general hospital (02) ==
LOC: ER 04:24
DX: I21.4 Non-ST elevation (NSTEMI) myocardial infarction (principal); R09.02 Hypoxemia
CPT/HCPCS: 36415; 71275; 81001; 83605; 84484; 85025; 85651; 86140; 87040; 87088; 87502; 93005; 93970; 96361; 96374; 99285; A9270; J2270; Q9967; 82040; 82247; 82310; 82374; 82435; 82565; 82947; 84075; 84132; 84155; 84295; 84450; 84460; 84520

== ENCOUNTER → 2018-01-10 | Outpatient (CLI) | payer MEDICARE, OTHER ==
[2018-01-08 10:13] VITALS: BMI 28.7
[~2018-01-10] MED LIST changes: +HYDR-4308 PO; +ONDA4TAB PO
== END ==
LOC: AMB 08:54
PROVIDERS: ATTEND Nurse Practitioner
DX: I21.4 Non-ST elevation (NSTEMI) myocardial infarction (principal); R79.89 Other specified abnormal findings of blood chemistry; R09.02 Hypoxemia
CPT/HCPCS: A0425; A0426

== ENCOUNTER → 2018-01-10 | Outpatient (CLI) | payer MEDICARE, OTHER ==
[2018-01-08 10:13] VITALS: BMI 28.7
== END ==
LOC: AMB 04:01
PROVIDERS: ATTEND Nurse Practitioner
DX: R09.02 Hypoxemia (principal); R00.0 Tachycardia, unspecified; R09.81 Nasal congestion; Z96.651 Presence of right artificial knee joint
CPT/HCPCS: A0425; A0427

== ENCOUNTER 2018-01-30 18:18 | Emergency (ER) | payer MEDICARE, OTHER ==
[2018-01-08 10:13] VITALS: Ht 182.9 cm; Wt 89.8 kg
[~2018-01-30] VITALS: Ht 182.9 cm; Wt 89.8 kg
--- NOTE | 2018-01-30 18:21 | ER Report ---
History and Physical Time Seen By MD: 18:21 HPI/ROS CHIEF COMPLAINT: Weakness HISTORY OF PRESENT ILLNESS: 72-year-old male presents to the ER complaining of weakness and dizziness. Patient is 3 weeks post total knee replacement. He states he's been at physical therapy riding the bike without any difficulty. Today he traveled over to [place] and began to feel odd. Returning home, he continued to feel on occasion and this evening. He states she's having trouble focusing. He denies headache, blurry vision or slurred speech. He denies numbness, tingling, weakness in any of his arms or legs. He denies leg swelling in his right leg where he had the whole knee replacement. Patient denies fever, chills, sore throat or rhinitis. Patient denies dysuria. Patient 's also complaining that he has not slept well. REVIEW OF SYSTEMS: Respiratory: No cough, no dyspnea. Cardiovascular: No chest pain, no palpitations. Gastrointestinal: No vomiting, no abdominal pain. Musculoskeletal: No back pain. Allergies: Coded Allergies: codeine (Verified Adverse Reaction, Severe, NAUSEA/VOMITING, 01/30/18) Home Meds Active Scripts Triazolam (TRIAZOLAM) 0.125 Mg Tablet, 0.125 MG PO QHS Y for sleep, #10 Prov:JOHNATHAN SOLIS DO 01/30/18 Sildenafil Citrate (SILDENAFIL) 20 Mg Tablet, 20 MG PO TID for 10 Days, #30 3 Refills Prov:GABBY NÚÑEZ MD 11/11/17 Losartan/Hydrochlorothiazide (HYZAAR 100-25 TABLET) 1 Each Tablet, 1 EACH PO QDAY, #60 TAB Prov:GABBY NÚÑEZ MD 10/23/17 Reported Medications Paroxetine Hcl (PAXIL) 30 Mg Tablet, 30 MG PO QDAY 12/26/13 Omeprazole Magnesium (Prilosec Otc) 20 Mg Tablet.dr, 20 MG PO QDAY 02/15/10 Discontinued Reported Medications Hydrocodone Bit/Acetaminophen (NORCO 7.5-325 TABLET) 1 Each Tablet, 1-2 EACH PO Q4-6H, #80 01/09/18 Discontinued Scripts Ondansetron (ZOFRAN ODT) 4 Mg Tab.rapdis, 4 MG PO Q8H Y for nausea, #5 TAB.ALIN Prov:CARLOTA MARTIN MD 01/09/18 Reviewed Nurses Notes: Yes Old Medical Records Reviewed: Yes Hx Smoking: No Smoking Status: Never Smoker Exposure to Second Hand Smoke?: No Hx Substance Use Disorder: No Hx Alcohol Use: Yes Constitutional Vital Sign - Last 24 Hours 01/30/18 01/30/18 01/30/18 01/30/18 18:26 18:28 18:33 18:48 Temp 98.2 Pulse 78 80 82 Resp 16 B/P (MAP) 147/98 (114) 147/98 Pulse Ox 96 97 96 O2 Delivery Room Air 01/30/18 01/30/18 01/30/18 01/30/18 18:53 19:08 19:23 19:38 Pulse 78 81 70 71 Resp 35 12 12 Pulse Ox 97 97 97 96 01/30/18 19:53 Pulse 70 Resp 17 Pulse Ox 97 Physical Exam Vital signs stable, afebrile, pulse ox normal General Appearance: The patient is alert, has no immediate need for airway protection and no current signs of toxicity. Alert and oriented 3 HEENT: Pupils equal and round no injection. TMs normal, oropharynx without redness or exudate, mucous. Membranes are moist Respiratory: Chest is non tender, lungs are clear to auscultation. No chest wall tenderness Cardiac: regular rate and rhythm, no murmur Gastrointestinal: Abdomen is soft and non tender, no masses, bowel sounds normal. Musculoskeletal: Neck: Neck is supple and non tender. Extremities have full range of motion and are non tender. Skin: No rashes or lesions. DIFFERENTIAL DIAGNOSIS: After history and physical exam differential diagnosis was considered for weakness including but not limited to electrolyte abnormality , depression, anxiety, CVA, spinal cord abnormality, and infectious causes. blood loss. Medical Decision Making Data Points Result Diagram: 01/30/18184901/30/181849 Laboratory Hematology Test 01/30/18 18:23 01/30/18 18:50 Urine Color Yellow Urine Clarity Clear Urine pH 5.0 pH (4.8-9.5) Urine Specific [place] 1.013 Urine Protein Negative mg/dL (NEGATIVE) Urine Glucose (UA) Negative mg/dL (NEGATIVE) Urine Ketones Negative mg/dL (NEGATIVE) Urine Blood Small (NEGATIVE) Urine Nitrite Negative (NEGATIVE) Urine Bilirubin Negative (NEGATIVE) Urine Urobilinogen Negative mg/dL (0.2-1.9) Urine Leukocyte Esterase Negative (NEGATIVE) Urine RBC 1 /HPF (0-2/HPF) Urine WBC <1 /HPF (0-5/HPF) Urine Squamous Epithelial Cells None /LPF (</=FEW) Urine Bacteria Negative /HPF (NONE-FEW) Urine Mucus None /HPF (NONE-FEW) Red Blood Count 4.66 M/uL (4.00-5.60) Mean Corpuscular Volume 90.0 fL (80.0-96.0) Mean Corpuscular Hemoglobin 31.0 pg (26.0-33.0) Mean Corpuscular Hemoglobin Concent 34.5 g/dL (32.0-36.0) Red Cell Distribution Width 14.1 % (11.5-14.5) Mean Platelet Volume 7.1 fL (7.2-11.1) Neutrophils (%) (Auto) 67.7 % (39.4-72.5) Lymphocytes (%) (Auto) 17.7 % (17.6-49.6) Monocytes (%) (Auto) 9.2 % (4.1-12.4) Eosinophils (%) (Auto) 4.7 % (0.4-6.7) Basophils (%) (Auto) 0.7 % (0.3-1.4) Nucleated RBC Relative Count (auto) 0.0 /100WBC Neutrophils # (Auto) 5.2 K/uL (2.0-7.4) Lymphocytes # (Auto) 1.4 K/uL (1.3-3.6) Monocytes # (Auto) 0.7 K/uL (0.3-1.0) Eosinophils # (Auto) 0.4 K/uL (0.0-0.5) Basophils # (Auto) 0.1 K/uL (0.0-0.1) Nucleated RBC Absolute Count (auto) 0.00 K/uL Sodium Level 136 mmol/L (137-145) Potassium Level 3.3 mmol/L (3.5-5.0) Chloride Level 99 mmol/L (98-107) Carbon Dioxide Level 26 mmol/L (22-30) Blood Urea Nitrogen 20 mg/dl (9-21) Creatinine 1.00 mg/dl (0.66-1.25) Glomerular Filtration Rate Calc > 60.0 Random Glucose 114 mg/dl (75-110) Calcium Level 9.2 mg/dl (8.4-10.2) Total Bilirubin 0.5 mg/dl (0.2-1.3) Aspartate Amino Transf (AST/SGOT) 17 U/L (0-35) Alanine Aminotransferase (ALT/SGPT) 37 U/L (0-56) Alkaline Phosphatase 60 U/L (0-126) Troponin I < 0.012 ng/ml Total Protein 6.8 gm/dl (6.3-8.2) Albumin 3.6 g/dl (3.5-5.0) Chemistry Test 01/30/18 18:23 01/30/18 18:50 Urine Color Yellow Urine Clarity Clear Urine pH 5.0 pH (4.8-9.5) Urine Specific [place] 1.013 Urine Protein Negative mg/dL (NEGATIVE) Urine Glucose (UA) Negative mg/dL (NEGATIVE) Urine Ketones Negative mg/dL (NEGATIVE) Urine Blood Small (NEGATIVE) Urine Nitrite Negative (NEGATIVE) Urine Bilirubin Negative (NEGATIVE) Urine Urobilinogen Negative mg/dL (0.2-1.9) Urine Leukocyte Esterase Negative (NEGATIVE) Urine RBC 1 /HPF (0-2/HPF) Urine WBC <1 /HPF (0-5/HPF) Urine Squamous Epithelial Cells None /LPF (</=FEW) Urine Bacteria Negative /HPF (NONE-FEW) Urine Mucus None /HPF (NONE-FEW) White Blood Count 7.7 k/uL (4.5-11.0) Red Blood Count 4.66 M/uL (4.00-5.60) Hemoglobin 14.5 g/dL (14.0-18.0) Hematocrit 41.9 % (42.0-52.0) Mean Corpuscular Volume 90.0 fL (80.0-96.0) Mean Corpuscular Hemoglobin 31.0 pg (26.0-33.0) Mean Corpuscular Hemoglobin Concent 34.5 g/dL (32.0-36.0) Red Cell Distribution Width 14.1 % (11.5-14.5) Platelet Count 295 K/uL (150-450) Mean Platelet Volume 7.1 fL (7.2-11.1) Neutrophils (%) (Auto) 67.7 % (39.4-72.5) Lymphocytes (%) (Auto) 17.7 % (17.6-49.6) Monocytes (%) (Auto) 9.2 % (4.1-12.4) Eosinophils (%) (Auto) 4.7 % (0.4-6.7) Basophils (%) (Auto) 0.7 % (0.3-1.4) Nucleated RBC Relative Count (auto) 0.0 /100WBC Neutrophils # (Auto) 5.2 K/uL (2.0-7.4) Lymphocytes # (Auto) 1.4 K/uL (1.3-3.6) Monocytes # (Auto) 0.7 K/uL (0.3-1.0) Eosinophils # (Auto) 0.4 K/uL (0.0-0.5) Basophils # (Auto) 0.1 K/uL (0.0-0.1) Nucleated RBC Absolute Count (auto) 0.00 K/uL Glomerular Filtration Rate Calc > 60.0 Calcium Level 9.2 mg/dl (8.4-10.2) Total Bilirubin 0.5 mg/dl (0.2-1.3) Aspartate Amino Transf (AST/SGOT) 17 U/L (0-35) Alanine Aminotransferase (ALT/SGPT) 37 U/L (0-56) Alkaline Phosphatase 60 U/L (0-126) Troponin I < 0.012 ng/ml Total Protein 6.8 gm/dl (6.3-8.2) Albumin 3.6 g/dl (3.5-5.0) Urinalysis Test 01/30/18 18:23 Urine Color Yellow Urine Clarity Clear Urine pH 5.0 pH (4.8-9.5) Urine Specific [place] 1.013 Urine Protein Negative mg/dL (NEGATIVE) Urine Glucose (UA) Negative mg/dL (NEGATIVE) Urine Ketones Negative mg/dL (NEGATIVE) Urine Blood Small (NEGATIVE) Urine Nitrite Negative (NEGATIVE) Urine Bilirubin Negative (NEGATIVE) Urine Urobilinogen Negative mg/dL (0.2-1.9) Urine Leukocyte Esterase Negative (NEGATIVE) Urine RBC 1 /HPF (0-2/HPF) Urine WBC <1 /HPF (0-5/HPF) Urine Squamous Epithelial Cells None /LPF (</=FEW) Urine Bacteria Negative /HPF (NONE-FEW) Urine Mucus None /HPF (NONE-FEW) EKG/Imaging EKG Interpretation 12 lead EK Rhythm: normal sinus rhythm [place]: normal QRS: normal ST segments: normal, nonspecific ST and T-wave changes, comparison to previous EKG 01/10/18, no significant change Imaging X-ray: Single view chest x-ray was obtained. I viewed the images myself on the PACS system. My interpretation of the images is: No infiltrate, no effusion, normal mediastinum. The radiologist interpretation had no clinically significant variation from this interpretation. Results: CT scan of the head was obtained. The results of the study are HEAD W/O CONTRAST EXAMINATION: CT head/brain without contrast HISTORY: Weakness unsteady TECHNIQUE: Contiguous axial images were obtained from the skull base to the vertex without intravenous contrast. One of the following dose optimization techniques was utilized in the performance of this exam: Automated exposure control; adjustment of the mA and/ or kV according to the patient's size; or use of an iterative reconstruction technique. Specific details can be referenced in the facility's radiology CT exam operational policy. COMPARISON STUDIES: None FINDINGS: Ventricles/sulci/fissures: Midline in position and normal in configuration. Masses/hemorrhage/midline shift: No hemorrhage. No parenchymal mass lesion. White matter: Mild age-related small vessel ischemic changes suspected. Carrillo-white differentiation: No cerebral edema. No evidence of any sulci effacement. Extra-axial spaces: No subdural or epidural fluid collections. No subarachnoid blood Dural venous sinuses/arterial structures: Negative Skull base/calvarium: Negative Visualized mastoid air cells/paranasal sinuses: Negative IMPRESSION: Negative CT scan of the head for acute intracranial pathology. The study was read by the radiologist. I viewed the images myself on the PACS system. ED Course/Re-evaluation Clinical Indication for ER IV: Hydration, IV Access ED Course Patient was minute to an examination room. H&P was done. The differential diagnoses was considered. On clinical examination. Patient has normal vital signs and a nonfocal neurologic examination. Diagnostic studies are undertaken. Laboratory studies are unremarkable. He is treated with IV fluid hydration. His potassium is noted be slightly low. CT scan ahead chest and EKG are all unremarkable. Patient feels better after IV fluid hydration. I suspect that he is suffering from some mild dehydration and some sleep deprivation. He is requesting a sleeping pill. Prescription for triazolam was provided. Patient advised to follow-up with his primary care if unimproved in 3 -5 days. Decision to Disposition Date: Jan 30, 2018 Decision to Disposition Time: 19:39 Depart Departure Latest Vital Signs Vital Signs Date Time Temp Pulse Resp B/P (MAP) Pulse Ox O2 Delivery O2 Flow Rate FiO2 01/30/18 19:53 70 17 97 01/30/18 18:28 98.2 147/98 Room Air Impression: Primary Impression: Weakness Additional Impression: Status post total knee replacement Condition: Improved Disposition: HOME OR SELF-CARE Referrals: REYMUNDO MYERS MD, FARRUKH MD New Scripts Triazolam (TRIAZOLAM) 0.125 Mg Tablet 0.125 MG PO QHS Y for sleep, #10 Prov: JOHNATHAN SOLIS DO 01/30/18 Patient Instructions: Fatigue (ED) Additional Instructions: Follow-up with your primary care doctor if unimproved in 2-5 days Problem Qualifiers Additional Impression: Status post total knee replacement Laterality: right Qualified Codes: Z96.651 - Presence of right artificial knee joint JOHNATHAN SOLIS DO Jan 30, 2018 18:21
[2018-01-30 18:28] VITALS: BP 147/98
[2018-01-30] MEDS ORDERED: NS(*) 0.9% 1000 ML BAG 1,000 ML IV ONE (18:37)
[2018-01-30 18:59] LABS: PLATELET COUNT, AUTOMATED 295 K/uL (150-450)
--- NOTE | 2018-01-30 19:32 | RADIOLOGY IMAGING REPORT ---
FACILITY: [facility] - [place] PATIENT NAME: Edwin Ren : 1945 MR: [id number] V: [id number] EXAM DATE: ORDERING PHYSICIAN: JOHNATHAN SOLIS TECHNOLOGIST: Location: [facility] [place] Patient: Edwin Ren : 1945 Visit/Account:[id number] Date of Sevice: 01/30/2018 HEAD W/O CONTRAST EXAMINATION: CT head/brain without contrast HISTORY: Weakness unsteady TECHNIQUE: Contiguous axial images were obtained from the skull base to the vertex without intravenou s contrast. One of the following dose optimization techniques was utilized in the performance of this exam: Autom ated exposure control; adjustment of the mA and/or kV according to the patient's size; or use of an i terative reconstruction technique. Specific details can be referenced in the facility's radiology C T exam operational policy. COMPARISON STUDIES: None FINDINGS: Ventricles/sulci/fissures: Midline in position and normal in configuration. Masses/hemorrhage/midline shift: No hemorrhage. No parenchymal mass lesion. White matter: Mild age-related small vessel ischemic changes suspected. Carrillo-white differentiation: No cerebral edema. No evidence of any sulci effacement. Extra-axial spaces: No subdural or epidural fluid collections. No subarachnoid blood Dural venous sinuses/arterial structures: Negative Skull base/calvarium: Negative Visualized mastoid air cells/paranasal sinuses: Negative IMPRESSION: Negative CT scan of the head for acute intracranial pathology. Report Dictated By: Lance Jean-Baptiste MD at 01/30/2018 7:26 PM Report E-Signed By: Lance Jean-Baptiste MD at 01/30/2018 7:27 PM WSN:[id number]
--- NOTE | 2018-01-30 19:34 | RADIOLOGY IMAGING REPORT ---
FACILITY: [facility] - [place] PATIENT NAME: Edwin Ren : 1945 MR: [id number] V: [id number] EXAM DATE: ORDERING PHYSICIAN: JOHNATHAN SOLIS TECHNOLOGIST: Location: [facility] [place] Patient: Edwin eRn : 1945 Visit/Account:[id number] Date of Sevice: 01/30/2018 CHEST SINGLE AP Additional pertinent History: Weakness unsteady COMPARISON STUDIES: 12/06/2017 FINDINGS: Support lines and catheters: Negative Lungs and Pleura: Lung casey well expanded with no infiltrates or consolidations. No parenchymal ma ss lesions are seen. There are no effusions Heart and vasculature: Negative. Meagan and Mediastinum: Negative. Bones and Chest wall: Clavicular plate seen in the right mid/distal clavicle Upper Abdomen: Negative. IMPRESSION: 1. Negative chest for acute cardiopulmonary disease. Report Dictated By: Lance Jean-Baptiste MD at 01/30/2018 7:28 PM Report E-Signed By: Lance Jean-Baptiste MD at 01/30/2018 7:30 PM WSN:[id number]
[2018-01-30] MEDS ORDERED: [UNRECOGNIZED DRUG - CODE] PO (20:06)
--- NOTE | 2018-01-30 22:50 | EKG ---
FACILITY: [facility] - [place] PATIENT NAME: ADELINA GOMES : [id number] MR: [id number] V: [id number] EXAM DATE: ORDERING PHYSICIAN: JOHNATHAN SOLIS TECHNOLOGIST: BOUCHRA Test Reason : WEAKNESS Blood Pressure : / mmHG Vent. Rate : 084 BPM Atrial Rate : 084 BPM P-R Int : 166 ms QRS Dur : 104 ms QT Int : 406 ms P-R-T Axes : 055 051 043 degrees QTc Int : 479 ms Normal sinus rhythm Normal ECG When compared with ECG of 10-JAN-2018 05:48, Criteria for Septal infarct are no longer present T wave inversion no longer evident in Lateral leads Confirmed by HILLARY STARR ([id number]) on 01/31/2018 6:48:58 AM Referred By: Confirmed By:HILLARY STARR
== END 2018-01-30 20:10 | disposition home or self-care (01) ==
LOC: ER 18:23
DX: E87.6 Hypokalemia (principal); E86.0 Dehydration; R53.1 Weakness; Z96.651 Presence of right artificial knee joint
CPT/HCPCS: 70450; 71045; 81001; 84484; 85025; 93005; 96360; 99284; J7030; 82040; 82247; 82310; 82374; 82435; 82565; 82947; 84075; 84132; 84155; 84295; 84450; 84460; 84520

== ENCOUNTER 2018-07-02 06:34 | Emergency (ER) | payer MEDICARE, OTHER ==
[2018-01-08 10:13] VITALS: BMI 28.7
[~2018-07-02 06:34] MED LIST changes: -TRAZ-156 PO; +TRAZ50TA34 PO; +[UNRECOGNIZED DRUG - CODE] PO
--- NOTE | 2018-07-02 06:51 | EKG ---
FACILITY: [facility] PATIENT NAME: ADELINA GOMES : [id number] MR: [id number] V: [id number] EXAM DATE: ORDERING PHYSICIAN: VERÓNICA RICO TECHNOLOGIST: GO Franklin Reason : NEURO Blood Pressure : / mmHG Vent. Rate : 074 BPM Atrial Rate : 074 BPM P-R Int : 162 ms QRS Dur : 108 ms QT Int : 428 ms P-R-T Axes : 020 046 020 degrees QTc Int : 475 ms Sinus rhythm with occasional premature ventricular complexes Otherwise normal ECG When compared with ECG of 30-JAN-2018 18:40, premature ventricular complexes are now present Confirmed by Durga Nunn ([id number]) on 07/02/2018 7:50:16 AM Referred By: Confirmed By:Durga Orozco
--- NOTE | 2018-07-02 06:53 | ER Report ---
History and Physical Time Seen By MD: 06:48 Hx. of Stated Complaint: Pt reports he woke up and his legs are feeling weak. Pt denies chest pain, SOB , or unilateral tingling or weakness. Pt states he has not changed his medications. Pt states he ate a lot of sugar yesterday. No NVD. (VERÓNICA HEBERT DO) HPI/ROS CHIEF COMPLAINT: Generalized weakness HISTORY OF PRESENT ILLNESS: Patient is a 72-year-old male here with complaints of generalized weakness starting this morning when waking up. Patient reportedly went to sleep feeling at his baseline however woke up this morning feeling weak all over without any focal deficits. Patient denies chest pain, shortness breath, nausea, vomiting, fevers, chills, headache, blurred vision, abdominal pains, arthralgias, myalgias, recent traumas. Patient is well- appearing at time of reevaluation, afebrile, hemodynamically stable and in no acute distress. He does have history of hypertension and takes an antihypertensive medication, Prilosec for GERD, and otherwise had a previous negative workup for cardiac etiology in the distant past. REVIEW OF SYSTEMS: Constitutional: No fevers or chills + generalized weakness Eyes: No discharge. ENT: No sore throat. Cardiovascular: No chest pain, no palpitations. Respiratory: No cough, no shortness of breath. Gastrointestinal: No abdominal pain, no vomiting. Genitourinary: No hematuria. Musculoskeletal: No back pain. Skin: No rashes. Neurological: No headache. (VERÓNICA HEBERT DO) Allergies: Coded Allergies: codeine (Verified Adverse Reaction, Severe, NAUSEA/VOMITING, 01/30/18) Home Meds Active Scripts Losartan/Hydrochlorothiazide (HYZAAR 100-25 TABLET) 1 Each Tablet, 1 EACH PO QDAY, #60 TAB Prov:GABBY NÚÑEZ MD 10/23/17 Reported Medications Paroxetine Hcl (PAXIL) 30 Mg Tablet, 30 MG PO QDAY 12/26/13 Omeprazole Magnesium (Prilosec Otc) 20 Mg Tablet.dr, 20 MG PO QDAY 02/15/10 Discontinued Scripts Triazolam (TRIAZOLAM) 0.125 Mg Tablet, 0.125 MG PO QHS Y for sleep, #10 Prov:JOHNATHAN SOLIS DO 01/30/18 Sildenafil Citrate (SILDENAFIL) 20 Mg Tablet, 20 MG PO TID for 10 Days, #30 3 Refills Prov:GABBY NÚÑEZ MD 11/11/17 Hx Smoking: No Smoking Status: Never Smoker Exposure to Second Hand Smoke?: No Hx Substance Use Disorder: No Hx Alcohol Use: Yes (VERÓNICA HEBERT DO) Constitutional Vital Sign - Last 24 Hours 07/02/18 07/02/18 07/02/18 07/02/18 06:38 06:39 06:49 07:00 Temp 98.0 Pulse 77 68 Resp 16 16 B/P (MAP) 164/93 (116) 164/93 143/87 (105) Pulse Ox 95 96 O2 Delivery Room Air 07/02/18 07/02/18 07/02/18 07:04 07:24 07:30 Pulse 74 70 Resp 16 14 B/P (MAP) 156/117 (130) Pulse Ox 98 (TOMY BROOKS MD) Physical Exam General Appearance: The patient is alert, has no immediate need for airway protection and no signs of toxicity. No acute distress Eyes: Pupils equal and round no pallor or injection. ENT, Mouth: Mucous membranes are moist. Respiratory: There are no retractions, lungs are clear to auscultation. Cardiovascular: Regular rate and rhythm. Gastrointestinal: Abdomen is soft and non tender, no masses, bowel sounds normal. Neurological: No focal neurologic deficits Skin: Warm and dry, no rashes. Musculoskeletal: Neck is supple non tender. Extremities are nontender, nonswollen and have full range of motion. DIFFERENTIAL DIAGNOSIS: After history and physical exam differential diagnosis was considered for electrolyte abnormalities, cardiac etiology, infectious etiology, dehydration (VERÓNICA HEBERT DO) Medical Decision Making Data Points Result Diagram: 07/02/18 0655 07/02/18 0655 Laboratory Hematology Test 07/02/18 06:55 07/02/18 07:45 Red Blood Count 4.97 M/uL (4.00-5.60) Mean Corpuscular Volume 90.8 fL (80.0-96.0) Mean Corpuscular Hemoglobin 31.8 pg (26.0-33.0) Mean Corpuscular Hemoglobin Concent 35.0 g/dL (32.0-36.0) Red Cell Distribution Width 14.8 % (11.5-14.5) Mean Platelet Volume 7.5 fL (7.2-11.1) Neutrophils (%) (Auto) 80.4 % (39.4-72.5) Lymphocytes (%) (Auto) 12.5 % (17.6-49.6) Monocytes (%) (Auto) 5.3 % (4.1-12.4) Eosinophils (%) (Auto) 1.4 % (0.4-6.7) Basophils (%) (Auto) 0.4 % (0.3-1.4) Nucleated RBC Relative Count (auto) 0.0 /100WBC Neutrophils # (Auto) 7.0 K/uL (2.0-7.4) Lymphocytes # (Auto) 1.1 K/uL (1.3-3.6) Monocytes # (Auto) 0.5 K/uL (0.3-1.0) Eosinophils # (Auto) 0.1 K/uL (0.0-0.5) Basophils # (Auto) 0.0 K/uL (0.0-0.1) Nucleated RBC Absolute Count (auto) 0.00 K/uL Sodium Level 135 mmol/L (137-145) Potassium Level 2.8 mmol/L (3.5-5.0) Chloride Level 96 mmol/L (98-107) Carbon Dioxide Level 27 mmol/L (22-30) Blood Urea Nitrogen 23 mg/dl (9-21) Creatinine 1.10 mg/dl (0.66-1.25) Glomerular Filtration Rate Calc > 60.0 Random Glucose 131 mg/dl (75-110) Calcium Level 8.9 mg/dl (8.4-10.2) Magnesium Level 1.7 mg/dl (1.7-2.2) Total Bilirubin 1.0 mg/dl (0.2-1.3) Aspartate Amino Transf (AST/SGOT) 21 U/L (0-35) Alanine Aminotransferase (ALT/SGPT) 30 U/L (0-56) Alkaline Phosphatase 50 U/L (0-126) Troponin I < 0.012 ng/ml Total Protein 6.8 g/dl (6.3-8.2) Albumin 4.0 g/dl (3.5-5.0) Urine Color Yellow Urine Clarity Clear Urine pH 6.0 pH (4.8-9.5) Urine Specific [place] 1.016 Urine Protein Negative mg/dL (NEGATIVE) Urine Glucose (UA) Negative mg/dL (NEGATIVE) Urine Ketones Negative mg/dL (NEGATIVE) Urine Blood Negative (NEGATIVE) Urine Nitrite Negative (NEGATIVE) Urine Bilirubin Negative (NEGATIVE) Urine Urobilinogen Negative mg/dL (0.2-1.9) Urine Leukocyte Esterase Negative (NEGATIVE) Urine RBC <1 /HPF (0-2/HPF) Urine WBC None /HPF (0-5/HPF) Urine Squamous Epithelial Cells None /LPF (</=FEW) Urine Bacteria Negative /HPF (NONE-FEW) Urine Mucus None /HPF (NONE-FEW) Chemistry Test 07/02/18 06:55 07/02/18 07:45 White Blood Count 8.8 k/uL (4.5-11.0) Red Blood Count 4.97 M/uL (4.00-5.60) Hemoglobin 15.8 g/dL (14.0-18.0) Hematocrit 45.1 % (42.0-52.0) Mean Corpuscular Volume 90.8 fL (80.0-96.0) Mean Corpuscular Hemoglobin 31.8 pg (26.0-33.0) Mean Corpuscular Hemoglobin Concent 35.0 g/dL (32.0-36.0) Red Cell Distribution Width 14.8 % (11.5-14.5) Platelet Count 229 K/uL (150-450) Mean Platelet Volume 7.5 fL (7.2-11.1) Neutrophils (%) (Auto) 80.4 % (39.4-72.5) Lymphocytes (%) (Auto) 12.5 % (17.6-49.6) Monocytes (%) (Auto) 5.3 % (4.1-12.4) Eosinophils (%) (Auto) 1.4 % (0.4-6.7) Basophils (%) (Auto) 0.4 % (0.3-1.4) Nucleated RBC Relative Count (auto) 0.0 /100WBC Neutrophils # (Auto) 7.0 K/uL (2.0-7.4) Lymphocytes # (Auto) 1.1 K/uL (1.3-3.6) Monocytes # (Auto) 0.5 K/uL (0.3-1.0) Eosinophils # (Auto) 0.1 K/uL (0.0-0.5) Basophils # (Auto) 0.0 K/uL (0.0-0.1) Nucleated RBC Absolute Count (auto) 0.00 K/uL Glomerular Filtration Rate Calc > 60.0 Calcium Level 8.9 mg/dl (8.4-10.2) Magnesium Level 1.7 mg/dl (1.7-2.2) Total Bilirubin 1.0 mg/dl (0.2-1.3) Aspartate Amino Transf (AST/SGOT) 21 U/L (0-35) Alanine Aminotransferase (ALT/SGPT) 30 U/L (0-56) Alkaline Phosphatase 50 U/L (0-126) Troponin I < 0.012 ng/ml Total Protein 6.8 g/dl (6.3-8.2) Albumin 4.0 g/dl (3.5-5.0) Urine Color Yellow Urine Clarity Clear Urine pH 6.0 pH (4.8-9.5) Urine Specific [place] 1.016 Urine Protein Negative mg/dL (NEGATIVE) Urine Glucose (UA) Negative mg/dL (NEGATIVE) Urine Ketones Negative mg/dL (NEGATIVE) Urine Blood Negative (NEGATIVE) Urine Nitrite Negative (NEGATIVE) Urine Bilirubin Negative (NEGATIVE) Urine Urobilinogen Negative mg/dL (0.2-1.9) Urine Leukocyte Esterase Negative (NEGATIVE) Urine RBC <1 /HPF (0-2/HPF) Urine WBC None /HPF (0-5/HPF) Urine Squamous Epithelial Cells None /LPF (</=FEW) Urine Bacteria Negative /HPF (NONE-FEW) Urine Mucus None /HPF (NONE-FEW) Urinalysis Test 07/02/18 07:45 Urine Color Yellow Urine Clarity Clear Urine pH 6.0 pH (4.8-9.5) Urine Specific [place] 1.016 Urine Protein Negative mg/dL (NEGATIVE) Urine Glucose (UA) Negative mg/dL (NEGATIVE) Urine Ketones Negative mg/dL (NEGATIVE) Urine Blood Negative (NEGATIVE) Urine Nitrite Negative (NEGATIVE) Urine Bilirubin Negative (NEGATIVE) Urine Urobilinogen Negative mg/dL (0.2-1.9) Urine Leukocyte Esterase Negative (NEGATIVE) Urine RBC <1 /HPF (0-2/HPF) Urine WBC None /HPF (0-5/HPF) Urine Squamous Epithelial Cells None /LPF (</=FEW) Urine Bacteria Negative /HPF (NONE-FEW) Urine Mucus None /HPF (NONE-FEW) (TOMY BROOKS MD) EKG/Imaging EKG Interpretation 12 lead EKG: Normal sinus rhythm with PVCs, rate 74, QTc 475, no ischemic changes Rhythm: normal sinus rhythm with PVCs Howard: normal QRS: normal ST segments: normal Monitor Interpretation: Normal Sinus Rhythm (VERÓNICA HEBERT DO) ED Course/Re-evaluation ED Course Patient is a 72-year-old male here with complaints of acute onset of weakness after waking up which is generalized without focal neurological deficits. Patient is afebrile, hemodynamically stable in no acute distress. Patient denies recent trauma or other significant comorbidities aside from hypertension , GERD. Patient was well-appearing at time of evaluation. Patient was signed out to Dr. Brooks after initial lab workup was ordered. 1 L normal saline bolus was administered for hydration optimization. EKG showed no ischemic changes. (VERÓNICA HEBERT DO) ED Course ED clinical course medical decision making patient endorsed me by Dr. Hebert generalized nonspecific weakness workup demonstrated hypokalemia with potassium less than 3 this is replaced both IV and by mouth repeat EKG pending initial EKG troponins cardiac markers chest x-ray all negative no focal deficits no sign of acute stroke event patient's hypokalemia be treated emergency department follow up with primary care Decision to Disposition Date: Jul 02, 2018 Decision to Disposition Time: 08:21 (TOMY BROOKS MD) Depart Departure Latest Vital Signs Vital Signs Date Time Temp Pulse Resp B/P (MAP) Pulse Ox O2 Delivery O2 Flow Rate FiO2 07/02/18 07:30 156/117 (130) 07/02/18 07:24 70 14 07/02/18 07:04 98 07/02/18 06:39 98.0 Room Air (TOMY BROOKS MD) Impression: Primary Impression: Weakness Additional Impression: Hypokalemia Condition: Improved Disposition: HOME OR SELF-CARE Referrals: JUAN DAVID TAFOYA DNP, [facility] 5 Days Patient Instructions: Hypokalemia (DC) Problem Qualifiers VERÓNICA HEBERT DO Jul 02, 2018 06:53 TOMY BROOKS MD Jul 02, 2018 07:56
[2018-07-02] MEDS ORDERED: NS(*) 0.9% 1000 ML BAG 1,000 ML IV ONE (07:00)
[2018-07-02 07:08] LABS: PLATELET COUNT, AUTOMATED 229 K/uL (150-450)
[2018-07-02] MEDS ORDERED: POTASSIUM CHL 20 MEQ TABCR PO ONE (07:25)
[2018-07-02] MEDS ORDERED: KCL/NS* 20 MEQ/1000 ML PREMIX 1,000 ML IV SCH (07:25)
[2018-07-02] MEDS ORDERED: KCL (*) 20 MEQ/100 ML PREMIX 100 ML IV ONE ×2 (07:25→07:40)
--- NOTE | 2018-07-02 07:40 | RADIOLOGY IMAGING REPORT ---
FACILITY: [facility] PATIENT NAME: dEwin Ren : 1945 MR: [id number] V: [id number] EXAM DATE: ORDERING PHYSICIAN: VERÓNICA RICO TECHNOLOGIST: Location: [facility] Patient: Edwin Ren : 1945 Visit/Account:[id number] Date of Sevice: 07/02/2018 TWO VIEW CHEST 07/02/2018 6:43 AM. INDICATION: weakness COMPARISON: 01/30/2018. FINDINGS: Lungs are well-expanded. The lungs are clear. No pneumothorax or pleural effusion. Pulmo nary vasculature is unremarkable. Heart size is normal. Unchanged right clavicle fixation hardware. Cholecystectomy clips. IMPRESSION: No acute cardiopulmonary abnormality. Report Dictated By: Hiram Portillo MD at 07/02/2018 7:34 AM Report E-Signed By: Hiram Portillo MD at 07/02/2018 7:35 AM [id number]
[2018-07-02 10:18] VITALS: BP 149/98
--- NOTE | 2018-07-02 12:25 | EKG ---
FACILITY: [facility] PATIENT NAME: ADELINA GOMES : [id number] MR: [id number] V: [id number] EXAM DATE: ORDERING PHYSICIAN: TOMY BROOKS TECHNOLOGIST: GO Franklin Reason : REPEAT Blood Pressure : / mmHG Vent. Rate : 075 BPM Atrial Rate : 075 BPM P-R Int : 176 ms QRS Dur : 104 ms QT Int : 424 ms P-R-T Axes : 046 033 020 degrees QTc Int : 473 ms Sinus rhythm with occasional premature ventricular complexes Otherwise normal ECG No previous ECGs available Confirmed by CARLOTA MARTIN ([id number]) on 07/02/2018 2:23:21 PM Referred By: TODD Confirmed By:CARLOTA MARTIN
== END 2018-07-02 10:23 | disposition home or self-care (01) ==
LOC: ER 07:17
DX: R53.1 Weakness (principal); E87.6 Hypokalemia; I10 Essential (primary) hypertension; K21.9 Gastro-esophageal reflux disease without esophagitis; Z79.899 Other long term (current) drug therapy
CPT/HCPCS: 71046; 81001; 83735; 84484; 85025; 93005; 96361; 96365; 96366; 99284; A9270; J3480; J7030; 82040; 82247; 82310; 82374; 82435; 82565; 82947; 84075; 84132; 84155; 84295; 84450; 84460; 84520

== ENCOUNTER 2018-10-07 02:18 | Day surgery (SDC) | payer MEDICARE, OTHER ==
[2018-01-08 10:13] VITALS: Ht 182.9 cm; Wt 85.3 kg
[~2018-10-07] VITALS: Ht 182.9 cm; Wt 85.3 kg
[~2018-10-07 02:18] MED LIST changes: -HYDR-4308 PO; +HYDR-654 PO
[2018-10-07 10:29] VITALS: BP 166/111
[2018-10-07] MEDS ORDERED: NORMOSOL R SOLN(*) 1000 ML BAG 1,000 ML IV PRN (12:00)
[2018-10-07] MEDS ORDERED: LIDOCAINE/SOD BICARB 8.4% SYR ID ONE (12:00)
[2018-10-07 12:25] VITALS: BP 94/66
[2018-10-07 12:30] VITALS: BP 100/70
[2018-10-07 12:50] VITALS: BP 119/105
[2018-10-07 12:52] VITALS: BP 131/96
[2018-10-07] MEDS ORDERED: PROPOFOL EMUL(*) 10MG/ML 20 ML 60 ML ONE (12:55)
[2018-10-07] MEDS ORDERED: INFLUENZA VIRUS VAC 0.5ML SYR IM ONLY ONE (13:00)
== END 2018-10-07 13:13 | disposition home or self-care (01) ==
LOC: OR 02:18
PROVIDERS: ATTEND Family Medicine
DX: K62.0 Anal polyp (principal); K92.1 Melena; I10 Essential (primary) hypertension; F41.9 Anxiety disorder, unspecified
CPT/HCPCS: 00811; 45385; 88305; J2704

== ENCOUNTER 2019-01-27 09:55 | Emergency (ER) | payer MEDICARE, OTHER ==
[2018-01-08 10:13] VITALS: Wt 87.1 kg
--- NOTE | 2019-01-27 10:07 | ER Report ---
History and Physical Time Seen By MD: 10:07 Hx. of Stated Complaint: LEFT SIDE ABD PAIN HPI/ROS CHIEF COMPLAINT: Left abdominal pain HISTORY OF PRESENT ILLNESS: This is a 73-year-old male. He started having lower left abdominal pain this morning when he woke up. Last night he was feeling fine. Pain does not radiate. Worsens with movement and walking. Denies any diarrhea or constipation. No melena or blood in stool. Normal urination without dysuria or change in color or blood. Denies any flank pain. No history of kidney stones. Had a colonoscopy while back and said it was reported as normal. Denies any fevers or chills with this. Denies chest pain or shortness of breath. Allergies: Coded Allergies: codeine (Verified Adverse Reaction, Severe, NAUSEA/VOMITING, 01/27/19) Home Meds Active Scripts Promethazine Hcl (PROMETHAZINE HCL) 25 Mg Tablet, 25 MG PO Q8H PRN for NAUSEA/VOMITING, #20 TAB 0 Refills Prov:FLORIDA RUIZ MD 01/27/19 Hydrocodone Bit/Acetaminophen (HYDROCODON-ACETAMINOPHEN 5-325) 1 Each Tablet, 1 EACH PO Q4H PRN for PAIN, #12 TAB 0 Refills Prov:FLOR[place] RUIZ MD 01/27/19 Metronidazole (METRONIDAZOLE) 500 Mg Tablet, 500 MG PO TID, #30 TAB 0 Refills Prov:FLORIDA RUIZ MD 01/27/19 Levofloxacin 500 Mg Tab (LEVAQUIN 500 MG TAB) 500 Mg Tablet, 500 MG PO QDAY, #10 TAB 0 Refills Prov:FLORIDA RUIZ MD 01/27/19 Losartan/Hydrochlorothiazide (HYZAAR 100-25 TABLET) 1 Each Tablet, 1 EACH PO QDAY, #60 TAB Prov:GABBY NÚÑEZ MD 10/23/17 Reported Medications Amoxicillin 500 Mg Tab (AMOXICILLIN 500 MG TAB) 500 Mg Tablet, 1 TAB PO Q8H, TAB 01/27/19 Omeprazole Magnesium (PRILOSEC OTC) Unknown Strength Tablet., PO 2XW, TAB 09/09/18 Paroxetine Hcl (PAXIL) 30 Mg Tablet, 30 MG PO QDAY 12/26/13 Reviewed Nurses Notes: Yes Hx Smoking: No Smoking Status: Never Smoker Exposure to Second Hand Smoke?: Yes (12 YEARS) Hx Substance Use Disorder: No Hx Alcohol Use: Yes Constitutional Vital Sign - Last 24 Hours 01/27/19 01/27/19 01/27/19 01/27/19 09:59 10:00 10:30 11:00 Temp 97.9 Pulse 74 73 65 Resp 16 B/P (MAP) 168/101 168/101 (123) 146/94 (111) 149/95 (113) Pulse Ox 93 94 93 O2 Delivery Room Air 01/27/19 01/27/19 01/27/19 01/27/19 11:30 12:00 12:30 13:00 Pulse 67 68 69 67 B/P (MAP) 152/92 (112) 147/88 (107) 144/91 (108) 142/90 (107) Pulse Ox 95 92 91 91 01/27/19 13:30 Pulse 68 B/P (MAP) 138/84 (102) Pulse Ox 89 Physical Exam General Appearance: The patient is alert. Mild distress because of pain. Eyes: Pupils are equal, round. No pallor, injection or icterus. ENT: Mucous membranes are moist. Normal oral mucosa. Posterior oropharynx is normal. Neck: Supple and non tender. Respiratory: Lungs are clear to auscultation. Cardiovascular: Regular rate and rhythm. No murmurs, gallops or rubs. Normal capillary refill. Gastrointestinal: Abdomen is soft, tender in left lower quadrant. Nondistended. No rebound or guarding. Normal active bowel sounds. No costovertebral angle tenderness with percussion. Neurological: Alert and oriented x3. No focal neurologic deficits Skin: Warm and dry. Musculoskeletal: Extremities are nontender. DIFFERENTIAL DIAGNOSIS: After history and physical exam, differential diagnosis was considered for left lower abdominal pain including but not limited to diverticulitis and kidney stones Medical Decision Making Data Points Result Diagram: 01/27/19 1022 01/27/19 1022 Laboratory Hematology Test 01/27/19 10:00 01/27/19 10:22 Urine Color Shreya Urine Clarity Clear Urine pH 5.0 pH (4.8-9.5) Urine Specific Agency 1.026 Urine Protein Negative mg/dL (NEGATIVE) Urine Glucose (UA) Negative mg/dL (NEGATIVE) Urine Ketones Negative mg/dL (NEGATIVE) Urine Blood Negative (NEGATIVE) Urine Nitrite Negative (NEGATIVE) Urine Bilirubin Negative (NEGATIVE) Urine Urobilinogen Negative mg/dL (0.2-1.9) Urine Leukocyte Esterase Negative (NEGATIVE) Urine RBC None /HPF (0-2/HPF) Urine WBC 1 /HPF (0-5/HPF) Urine Squamous Epithelial Cells Few /LPF (</=FEW) Urine Bacteria Negative /HPF (NONE-FEW) Urine Mucus Few /HPF (NONE-FEW) Red Blood Count 5.26 M/uL (4.00-5.60) Mean Corpuscular Volume 92.3 fL (80.0-96.0) Mean Corpuscular Hemoglobin 32.3 pg (26.0-33.0) Mean Corpuscular Hemoglobin Concent 35.0 g/dL (32.0-36.0) Red Cell Distribution Width 13.8 % (11.5-14.5) Mean Platelet Volume 7.6 fL (7.2-11.1) Neutrophils (%) (Auto) 71.0 % (39.4-72.5) Lymphocytes (%) (Auto) 16.1 % (17.6-49.6) Monocytes (%) (Auto) 8.9 % (4.1-12.4) Eosinophils (%) (Auto) 3.4 % (0.4-6.7) Basophils (%) (Auto) 0.6 % (0.3-1.4) Nucleated RBC Relative Count (auto) 0.0 /100WBC Neutrophils # (Auto) 3.5 K/uL (2.0-7.4) Lymphocytes # (Auto) 0.8 K/uL (1.3-3.6) Monocytes # (Auto) 0.4 K/uL (0.3-1.0) Eosinophils # (Auto) 0.2 K/uL (0.0-0.5) Basophils # (Auto) 0.0 K/uL (0.0-0.1) Nucleated RBC Absolute Count (auto) 0.00 K/uL Sodium Level 138 mmol/L (137-145) Potassium Level 3.2 mmol/L (3.5-5.0) Chloride Level 100 mmol/L (98-107) Carbon Dioxide Level 29 mmol/L (22-30) Blood Urea Nitrogen 18 mg/dl (9-21) Creatinine 1.00 mg/dl (0.66-1.25) Glomerular Filtration Rate Calc > 60.0 Random Glucose 138 mg/dl (75-110) Calcium Level 9.3 mg/dl (8.4-10.2) Total Bilirubin 1.2 mg/dl (0.2-1.3) Aspartate Amino Transf (AST/SGOT) 27 U/L (0-35) Alanine Aminotransferase (ALT/SGPT) 37 U/L (0-56) Alkaline Phosphatase 59 U/L (0-126) Total Protein 7.1 g/dl (6.3-8.2) Albumin 4.2 g/dl (3.5-5.0) Amylase Level 61 U/L (0-110) Lipase 72 U/L (23-300) Chemistry Test 01/27/19 10:00 01/27/19 10:22 Urine Color Shreya Urine Clarity Clear Urine pH 5.0 pH (4.8-9.5) Urine Specific Agency 1.026 Urine Protein Negative mg/dL (NEGATIVE) Urine Glucose (UA) Negative mg/dL (NEGATIVE) Urine Ketones Negative mg/dL (NEGATIVE) Urine Blood Negative (NEGATIVE) Urine Nitrite Negative (NEGATIVE) Urine Bilirubin Negative (NEGATIVE) Urine Urobilinogen Negative mg/dL (0.2-1.9) Urine Leukocyte Esterase Negative (NEGATIVE) Urine RBC None /HPF (0-2/HPF) Urine WBC 1 /HPF (0-5/HPF) Urine Squamous Epithelial Cells Few /LPF (</=FEW) Urine Bacteria Negative /HPF (NONE-FEW) Urine Mucus Few /HPF (NONE-FEW) White Blood Count 5.0 k/uL (4.5-11.0) Red Blood Count 5.26 M/uL (4.00-5.60) Hemoglobin 17.0 g/dL (14.0-18.0) Hematocrit 48.6 % (42.0-52.0) Mean Corpuscular Volume 92.3 fL (80.0-96.0) Mean Corpuscular Hemoglobin 32.3 pg (26.0-33.0) Mean Corpuscular Hemoglobin Concent 35.0 g/dL (32.0-36.0) Red Cell Distribution Width 13.8 % (11.5-14.5) Platelet Count 223 K/uL (150-450) Mean Platelet Volume 7.6 fL (7.2-11.1) Neutrophils (%) (Auto) 71.0 % (39.4-72.5) Lymphocytes (%) (Auto) 16.1 % (17.6-49.6) Monocytes (%) (Auto) 8.9 % (4.1-12.4) Eosinophils (%) (Auto) 3.4 % (0.4-6.7) Basophils (%) (Auto) 0.6 % (0.3-1.4) Nucleated RBC Relative Count (auto) 0.0 /100WBC Neutrophils # (Auto) 3.5 K/uL (2.0-7.4) Lymphocytes # (Auto) 0.8 K/uL (1.3-3.6) Monocytes # (Auto) 0.4 K/uL (0.3-1.0) Eosinophils # (Auto) 0.2 K/uL (0.0-0.5) Basophils # (Auto) 0.0 K/uL (0.0-0.1) Nucleated RBC Absolute Count (auto) 0.00 K/uL Glomerular Filtration Rate Calc > 60.0 Calcium Level 9.3 mg/dl (8.4-10.2) Total Bilirubin 1.2 mg/dl (0.2-1.3) Aspartate Amino Transf (AST/SGOT) 27 U/L (0-35) Alanine Aminotransferase (ALT/SGPT) 37 U/L (0-56) Alkaline Phosphatase 59 U/L (0-126) Total Protein 7.1 g/dl (6.3-8.2) Albumin 4.2 g/dl (3.5-5.0) Amylase Level 61 U/L (0-110) Lipase 72 U/L (23-300) Urinalysis Test 01/27/19 10:00 Urine Color Shreya Urine Clarity Clear Urine pH 5.0 pH (4.8-9.5) Urine Specific Agency 1.026 Urine Protein Negative mg/dL (NEGATIVE) Urine Glucose (UA) Negative mg/dL (NEGATIVE) Urine Ketones Negative mg/dL (NEGATIVE) Urine Blood Negative (NEGATIVE) Urine Nitrite Negative (NEGATIVE) Urine Bilirubin Negative (NEGATIVE) Urine Urobilinogen Negative mg/dL (0.2-1.9) Urine Leukocyte Esterase Negative (NEGATIVE) Urine RBC None /HPF (0-2/HPF) Urine WBC 1 /HPF (0-5/HPF) Urine Squamous Epithelial Cells Few /LPF (</=FEW) Urine Bacteria Negative /HPF (NONE-FEW) Urine Mucus Few /HPF (NONE-FEW) EKG/Imaging Imaging CT ABDOMEN PELVIS W/ CON HISTORY: left abdominal pain since this morning TECHNIQUE: Following administration of IV contrast contiguous axial images acquired through the abdomen/pelvis. Coronal and sagittal reformatting also performed.Dose Lowering Technique One of the following dose optimization techniques was utilized in the performance of this exam: Automated exposure control; adjustment of the mA and/or kV according to the patient's size; or use of an iterative reconstruction technique. Specific details can be referenced in the facility's radiology CT exam operational policy. CONTRAST: 90 mL Isovue-300 COMPARISON: CTA chest January 10, [address] of abdomen and pelvis March 03, 2014 FINDINGS: Visualized lung bases: Negative. Hepatobiliary: There postsurgical changes from a cholecystectomy. Period 2 cm a lobular cyst inferior medial right lobe of the liver remains unchanged. There are several additional tiny hypodensities in the right lobe which may represent additional cysts although are too small to characterize Spleen: Negative. Adrenals: There is mild thickening the adrenal glands Pancreas: Negative. Kidneys ureters or bladder: There are numerous bilateral renal cysts Genitalia: Prostate gland is enlarged impinging upon the floor the bladder. There is a TURP defect GI: There is extensive diverticulosis throughout the left-sided the colon. There is very subtle infiltrative changes seen in the pericolonic fat in the distal descending colon which may represent mild acute diverticulitis Vessels/spaces/nodes: There mild atherosclerotic calcifications throughout the abdominal aorta and branch vessels. 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 There is a moderate left inguinal hernia containing fat. There is an additional hernia containing fat just lateral and superior to the right inguinal canal. There is a levoconvex scoliosis lumbar spine with extensive spondylotic changes. Additional findings: None pertinent. IMPRESSION: There is extensive diverticulosis throughout the left-sided the colon. There is very subtle infiltrative changes seen in the pericolic fat in the distal descending colon which may represent mild acute diverticulitis There is a large right hernia containing fat and a moderate left inguinal hernia. There is an additional small hernia containing fat that is just lateral and superior to the right inguinal canal Additional chronic findings as described Report Dictated By: Elizabeth Abarca MD at 01/27/2019 11:47 AM ED Course/Re-evaluation Clinical Indication for ER IV: Hydration, IV Access ED Course After initial evaluation, gave the patient some IV morphine and Zofran. CT scan ordered and labs obtained. Urinalysis negative, no sign of kidney stone. CT scan obtained showing diverticulitis. There are some inguinal hernias. Reevaluation with recheck shows that there is bulging there but no pain associated with this so this does not appear to be pain associated with inguinal hernia or incarceration. Discussed findings with the patient and his . Started Levaquin, metronidazole, and provided Lortab for pain and Phenergan for nausea. Decision to Disposition Date: Jan 27, 2019 Decision to Disposition Time: 13:02 Depart Departure Latest Vital Signs Vital Signs Date Time Temp Pulse Resp B/P (MAP) Pulse Ox O2 Delivery O2 Flow Rate FiO2 01/27/19 13:30 68 138/84 (102) 89 01/27/19 09:59 97.9 16 Room Air Impression: Primary Impression: Diverticulitis Condition: Improved Disposition: HOME OR SELF-CARE Referrals: ADELINA KHAN MD (PCP) New Scripts Promethazine Hcl (PROMETHAZINE HCL) 25 Mg Tablet 25 MG PO Q8H PRN for NAUSEA/VOMITING, #20 TAB 0 Refills Prov: FLORIDA RUIZ MD 01/27/19 Hydrocodone Bit/Acetaminophen (HYDROCODON-ACETAMINOPHEN 5-325) 1 Each Tablet 1 EACH PO Q4H PRN for PAIN, #12 TAB 0 Refills Prov: FLOR[place] RUIZ MD 01/27/19 Metronidazole (METRONIDAZOLE) 500 Mg Tablet 500 MG PO TID, #30 TAB 0 Refills Prov: [place]OR[place] RUIZ MD 01/27/19 Levofloxacin 500 Mg Tab (LEVAQUIN 500 MG TAB) 500 Mg Tablet 500 MG PO QDAY, #10 TAB 0 Refills Prov: FLOR[place] RUIZ MD 01/27/19 Patient Instructions: Diverticulitis (ED) Additional Instructions: You have an infection in the colon called Diverticulitis. We treat this with two antibiotics. 1. Levofloxacin 500mg once a day for 10 days. 2. Metronidazole 500mg three times a day for 10 days. For pain, you can take Lortab 5/325, one every 4 hours as needed for pain. For nausea, you can take Phenergan 25mg, one every 8 hours as needed for nausea or vomiting. Rest and increase fluid intake. Stick with a clear liquid and soft diet until you are feeling better. Follow-up with your primary care provider in the next 1-2 weeks for re- evaluation. Return if pain is worsening or having severe nausea or vomiting and not able to keep the medicines down. FLORIDA RUIZ MD Jan 27, 2019 10:07
[2019-01-27] MEDS ORDERED: AMOX500T10 PO (10:09)
[2019-01-27] MEDS ORDERED: ONDANSETRON 4 MG/2 ML VIAL IVP ONE (10:20)
[2019-01-27] MEDS ORDERED: NS(*) 0.9% 1000 ML BAG 1,000 ML IV ONE (10:20)
[2019-01-27] MEDS ORDERED: MORPHINE 2 MG/ML SYR IVP ONE ×2 (10:20→12:10)
[2019-01-27 10:28] LABS: PLATELET COUNT, AUTOMATED 223 K/uL (150-450)
[2019-01-27] MEDS ORDERED: IOPAMIDOL 61% 100 ML INFUS BTL 0 ML ONE (10:34)
[2019-01-27] MEDS ORDERED: IOPAMIDOL 61% 100 ML INFUS BTL 100 ML ONE (10:46)
--- NOTE | 2019-01-27 12:20 | RADIOLOGY IMAGING REPORT ---
FACILITY: [facility] PATIENT NAME: Edwin Ren : 1945 MR: [id number] V: [id number] EXAM DATE: ORDERING PHYSICIAN: FLORIDA RUIZ TECHNOLOGIST: Location: [facility] [place] Patient: Edwin Ren : 1945 Visit/Account:[id number] Date of Sevice: 01/27/2019 CT ABDOMEN PELVIS W/ CON HISTORY: left abdominal pain since this morning TECHNIQUE: Following administration of IV contrast contiguous axial images acquired through the abdom en/pelvis. Coronal and sagittal reformatting also performed.Dose Lowering Technique One of the following dose optimization techniques was utilized in the performance of this exam: Autom ated exposure control; adjustment of the mA and/or kV according to the patient's size; or use of an i terative reconstruction technique. Specific details can be referenced in the facility's radiology C T exam operational policy. CONTRAST: 90 mL Isovue-300 COMPARISON: CTA chest January 10, [address] of abdomen and pelvis March 03, 2014 FINDINGS: Visualized lung bases: Negative. Hepatobiliary: There postsurgical changes from a cholecystectomy. Period 2 cm a lobular cyst inferi or medial right lobe of the liver remains unchanged. There are several additional tiny hypodensities in the right lobe which may represent additional cysts although are too small to characterize Spleen: Negative. Adrenals: There is mild thickening the adrenal glands Pancreas: Negative. Kidneys ureters or bladder: There are numerous bilateral renal cysts Genitalia: Prostate gland is enlarged impinging upon the floor the bladder. There is a TURP defect GI: There is extensive diverticulosis throughout the left-sided the colon. There is very subtle inf iltrative changes seen in the pericolonic fat in the distal descending colon which may represent mild acute diverticulitis Vessels/spaces/nodes: There mild atherosclerotic calcifications throughout the abdominal aorta and b ranch vessels. There is mild aneurysmal dilatation of the right common iliac artery with eccentric m ural thrombus Bones/soft tissues: There is a large right inguinal hernia containing fat. There is a moderate left inguinal hernia containing fat. There is an additional hernia containing fat just lateral and super ior to the right inguinal canal. There is a levoconvex scoliosis lumbar spine with extensive spondyl otic changes. Additional findings: None pertinent. IMPRESSION: There is extensive diverticulosis throughout the left-sided the colon. There is very subtle infiltra tive changes seen in the pericolic fat in the distal descending colon which may represent mild acute diverticulitis There is a large right hernia containing fat and a moderate left inguinal hernia. There is an additi onal small hernia containing fat that is just lateral and superior to the right inguinal canal Additional chronic findings as described Report Dictated By: Elizabeth Abarca MD at 01/27/2019 11:47 AM Report E-Signed By: Elizabeth Abarca MD at 01/27/2019 12:16 PM WSN:[id number]
[2019-01-27] MEDS ORDERED: METR500T15 PO (13:08)
[2019-01-27] MEDS ORDERED: LEVO-85 PO (13:08)
[2019-01-27] MEDS ORDERED: LOR5/325 PO (13:08)
[2019-01-27] MEDS ORDERED: PROM-110 PO (13:08)
[2019-01-27] MEDS ORDERED: APAP/HYDROCODONE 325/5 TAB PO ONE (13:10)
[2019-01-27 13:30] VITALS: BP 138/84
== END 2019-01-27 13:50 | disposition home or self-care (01) ==
LOC: ER 10:10
DX: K57.32 Diverticulitis of large intestine without perforation or abscess without bleeding (principal); K40.90 Unilateral inguinal hernia, without obstruction or gangrene, not specified as recurrent
CPT/HCPCS: 74177; 81001; 82150; 83690; 85025; 96361; 96374; 96375; 96376; 99284; A9270; J2270; J2405; J7030; Q9967; 82040; 82247; 82310; 82374; 82435; 82565; 82947; 84075; 84132; 84155; 84295; 84450; 84460; 84520